=== PATIENT | female | born 1945 | race Caucasian/White ===

== ENCOUNTER → 2017-06-16 | Outpatient (CLI) | payer MEDICARE ==
[~2017-06-16] MED LIST: AMLO1CAP12 PO; APIX5TAB PO; CALC1TAB2 PO; DILT240T13 PO; FERR-82 PO; IRON PO; LISI10TA7 PO; METF500T6 PO; MONT10TA24 PO; MULTIPLE PO; PARO30TA60 PO; PRAV20TA4 PO; ROPI2TAB9 PO; SITA100T12 PO; SOTA80TA20 PO
== END | disposition home or self-care (01) ==
LOC: RAH 14:38
PROVIDERS: ATTEND Internal Medicine
DX: M79.604 Pain in right leg (principal); M79.662 Pain in left lower leg; M79.89 Other specified soft tissue disorders; R22.42 Localized swelling, mass and lump, left lower limb
CPT/HCPCS: 93971

== ENCOUNTER → 2017-07-13 | Outpatient (CLI) | payer MEDICARE ==
[~2017-07-13] MED LIST changes: -AMLO1CAP12 PO
== END | disposition home or self-care (01) ==
LOC: SHCH 13:57
PROVIDERS: ATTEND Internal Medicine Cardiovascular Disease
DX: I08.3 Combined rheumatic disorders of mitral, aortic and tricuspid valves (principal); I25.10 Atherosclerotic heart disease of native coronary artery without angina pectoris
CPT/HCPCS: 93306

== ENCOUNTER → 2017-10-13 | Outpatient (CLI) | payer MEDICARE ==
[~2017-10-13] MED LIST changes: +FURO40TA5 PO; +FURO40TA7 PO; -LISI10TA7 PO; +LISI40TA4 PO; +METF-444 PO; -METF500T6 PO; +METO50TA18 PO; +RANI-248 PO; +ROPI2TAB2 PO; +SOTA80TA PO; -SOTA80TA20 PO; +TRAZ-185 PO; +[UNRECOGNIZED DRUG - CODE] PO
== END | disposition home or self-care (01) ==
LOC: RAH 11:22
PROVIDERS: ATTEND Internal Medicine Cardiovascular Disease
DX: I61.9 Nontraumatic intracerebral hemorrhage, unspecified (principal); I11.0 Hypertensive heart disease with heart failure; I50.30 Unspecified diastolic (congestive) heart failure; E11.42 Type 2 diabetes mellitus with diabetic polyneuropathy; E78.5 Hyperlipidemia, unspecified; E03.9 Hypothyroidism, unspecified; M19.90 Unspecified osteoarthritis, unspecified site; I25.10 Atherosclerotic heart disease of native coronary artery without angina pectoris; I48.0 Paroxysmal atrial fibrillation; K21.9 Gastro-esophageal reflux disease without esophagitis; Z90.710 Acquired absence of both cervix and uterus
CPT/HCPCS: 70450

== ENCOUNTER 2017-10-19 07:40 | Day surgery (SDC) | payer MEDICARE ==
[2017-10-17 14:15] VITALS: BP 127/87
[2017-10-17 14:36] LABS: BASOPHILS % (AUTO) 1.3 % (0.0-5.0); EOSINOPHILS % (AUTO) 0.9 % (0.0-8.0); HEMATOCRIT 34.9 % (36-48); LYMPHOCYTES % (AUTO) 9.5 % (21.0-51.0); MEAN CORPUSCULAR HGB CONC 31.6 g/dL (32.0-36.0); MEAN CORPUSCULAR VOLUME 82.4 fL (79-99); MONOCYTES % (AUTO) 12.5 % (3.0-13.0); NEUTROPHILS % (AUTO) 75.8 % (40.0-77.0); NUCLEATED RED BLOOD CELLS 0.1 % (0.0-0.19); PLATELET COUNT (AUTO) 382 K/uL (130-400); RED BLOOD CELL COUNT(AUTO) 4.24 MIL/uL (4.00-5.50); RED CELL DISTRIBUTION WIDTH 17.2 % (11.0-15.5); WHITE BLOOD COUNT (AUTO) 7.3 K/uL (4.8-10.8)
[2017-10-17 14:49] LABS: CREATININE 1.3 mg/dL (0.5-1.5); POTASSIUM 3.4 mmol/L (3.5-5.1)
[2017-10-17 14:52] LABS: INR 1.36 (0.85-1.15); PARTIAL THROMBOPLASTIN TIME 30.5 SEC (26.3-35.5); PROTHROMBIN TIME 14.2 SEC (9.6-11.6)
[~2017-10-19] VITALS: Ht 149.9 cm; Wt 61.4 kg
[~2017-10-19 07:40] MED LIST changes: -FURO40TA5 PO; -FURO40TA7 PO; -METF-444 PO; -METO50TA18 PO; -RANI-248 PO; -ROPI2TAB2 PO; +SODIUM CHLORIDE 0.9% 1000ML 1,000 ML IV SCH; -SOTA80TA PO; -TRAZ-185 PO
[2017-10-19 07:48] VITALS: BP 116/80
[2017-10-19] MEDS ORDERED: DEXTROSE 50%-WATER 50 ML DISP.SYRIN IV ONE (08:07)
[2017-10-19] MEDS ORDERED: SOTA80TA PO (09:05)
[2017-10-19] MEDS ORDERED: LISI40TA4 PO (09:05)
[2017-10-19] MEDS ORDERED: ROPI2TAB2 PO (09:10)
[2017-10-19] MEDS ORDERED: TRAZ-185 PO (09:16)
[2017-10-19] MEDS ORDERED: FURO40TA5 PO (09:16)
[2017-10-19] MEDS ORDERED: RANI-248 PO (09:16)
[2017-10-19] MEDS ORDERED: METO50TA18 PO (09:16)
[2017-10-19] MEDS ORDERED: MIDAZOLAM HCL 1 MG/ML 2ML VIAL ONE (09:27)
[2017-10-19] MEDS ORDERED: FENTANYL CITRATE PF 50 MCG/1 ML 2ML VIAL ONE (09:28)
[2017-10-19] MEDS ORDERED: FURO40TA7 PO (11:56)
== END 2017-10-19 12:21 | disposition home or self-care (01) ==
LOC: DAH 07:40
PROVIDERS: ATTEND Internal Medicine Cardiovascular Disease
DX: I25.10 Atherosclerotic heart disease of native coronary artery without angina pectoris (principal); I10 Essential (primary) hypertension; E78.5 Hyperlipidemia, unspecified; I48.0 Paroxysmal atrial fibrillation; E11.9 Type 2 diabetes mellitus without complications; I34.1 Nonrheumatic mitral (valve) prolapse; Z98.49 Cataract extraction status, unspecified eye; Z95.1 Presence of aortocoronary bypass graft; Z79.899 Other long term (current) drug therapy; Z79.84 Long term (current) use of oral hypoglycemic drugs; Z96.651 Presence of right artificial knee joint; Z82.49 Family history of ischemic heart disease and other diseases of the circulatory system; Z83.3 Family history of diabetes mellitus; Z88.8 Allergy status to other drugs, medicaments and biological substances
CPT/HCPCS: 36415; 80048; 82948 ×2; 85025; 85610; 85730; 92960; 93005 ×2; A4606; J2250; J3010; J7070; 99155

== ENCOUNTER → 2018-03-16 | Outpatient (CLI) | payer MEDICARE ==
[~2018-03-16] MED LIST changes: -DILT240T13 PO; +FURO40TA7 PO; +RANI-248 PO; +ROPI2TAB2 PO; -ROPI2TAB9 PO; -SODIUM CHLORIDE 0.9% 1000ML 1,000 ML IV SCH; +SOTA80TA PO; +TRAZ-185 PO; -[UNRECOGNIZED DRUG - CODE] PO
== END | disposition home or self-care (01) ==
LOC: RAH 12:56
PROVIDERS: ATTEND Internal Medicine
DX: G23.8 Other specified degenerative diseases of basal ganglia (principal); G31.9 Degenerative disease of nervous system, unspecified
CPT/HCPCS: 70450

== ENCOUNTER 2018-05-07 05:24 | Observation (INO) | payer MEDICARE ==
[~2018-05-07] VITALS: Ht 149.9 cm; Wt 43.7 kg
[2018-05-07 06:03] LABS: APPEARANCE,URINE Clear (CLEAR); BILIRUBIN,URINE Negative (NEGATIVE); COLOR,URINE Yellow (YELLOW); GLUCOSE, URINE (UA) Negative (NEGATIVE); KETONES,URINE Negative (NEGATIVE); LEUKOCYTE ESTERASE ,URINE Negative (NEGATIVE); NITRATE,URINE Negative (NEGATIVE); OCCULT BLOOD,URINE Negative (NEGATIVE); PROTEIN,URINE Negative (NEGATIVE); UROBILINOGEN,URINE 0.2 mg/dL (0.2-1.0)
[2018-05-07 06:09] LABS: BASOPHILS % (AUTO) 1.2 % (0.0-5.0); HEMATOCRIT 33.4 % (36-48); LYMPHOCYTES % (AUTO) 10.4 % (21.0-51.0); MEAN CORPUSCULAR HEMOGLOBIN 25.5 pg (27.0-33.0); MEAN CORPUSCULAR HGB CONC 31.4 g/dL (32.0-36.0); MEAN CORPUSCULAR VOLUME 81.2 fL (79-99); MONOCYTES % (AUTO) 15.4 % (3.0-13.0); NUCLEATED RED BLOOD CELLS 0.2 % (0.0-0.19); PLATELET COUNT (AUTO) 278 K/uL (130-400); RED BLOOD CELL COUNT(AUTO) 4.12 MIL/uL (4.00-5.50); RED CELL DISTRIBUTION WIDTH 20.8 % (11.0-15.5); WHITE BLOOD COUNT (AUTO) 8.8 K/uL (4.8-10.8)
[2018-05-07 06:14] LABS: CREATININE 1.2 mg/dL (0.5-1.5); POTASSIUM 3.8 mmol/L (3.5-5.1)
[2018-05-07 06:18] LABS: INR 1.25 (0.85-1.15); PARTIAL THROMBOPLASTIN TIME 30.3 SEC (26.3-35.5); PROTHROMBIN TIME 13.1 SEC (9.6-11.6)
[2018-05-07 06:20] LABS: ALBUMIN 3.5 g/dL (3.5-5.0); BILIRUBIN,TOTAL 0.6 mg/dL (0.2-1.0); TOTAL PROTEIN, SERUM 7.3 g/dL (6.0-8.3)
[2018-05-07] MEDS ORDERED: FUROSEMIDE 10 MG/ML 4ML VIAL ONE (07:54)
[2018-05-07] MEDS ORDERED: ROPINIROLE HCL 1 MG TABLET PO PRN (10:15)
[2018-05-07] MEDS ORDERED: TRAZODONE HCL 50 MG TAB PO PRN (10:15)
[2018-05-07] MEDS ORDERED: RANITIDINE HCL 15 MG/1 ML PO PRN (10:15)
[2018-05-07 10:20] VITALS: BP 183/87
[2018-05-07] MEDS ORDERED: POTASSIUM CHLORIDE 20 MEQ ERTAB PO PRN (10:30)
[2018-05-07] MEDS ORDERED: LACTULOSE 20 GM/30 ML UDCUP PO PRN (10:30)
[2018-05-07] MEDS ORDERED: POTASSIUM CHLORIDE 10% ELIXIR 20 MEQ/15 ML UDCUP PO PRN (10:30)
[2018-05-07] MEDS ORDERED: POTASSIUM CHLORIDE 20MEQ/100ML 100 ML IV PRN (10:30)
[2018-05-07] MEDS ORDERED: GLUCAGON 1MG KIT 1 MG ML IM PRN (10:30)
[2018-05-07] MEDS ORDERED: MAG HYDROX/AL HYDROX/SIMETH ES 30 ML SUSP UDCUP PO PRN (10:30)
[2018-05-07] MEDS ORDERED: METOLAZONE 2.5 MG TABLET PO SCH (10:30)
[2018-05-07] MEDS ORDERED: ONDANSETRON HCL 4 MG/2 ML VIAL IV PRN (10:30)
[2018-05-07] MEDS ORDERED: LIDOCAINE HCL-MPF 1% 2ML VIAL IVP PRN (10:30)
[2018-05-07] MEDS ORDERED: DEXTROSE 50%-WATER 50 ML DISP.SYRIN IV PRN (10:30)
[2018-05-07] MEDS ORDERED: ACETAMINOPHEN 325 MG TAB PO PRN ×2 (10:30)
[2018-05-07] MEDS ORDERED: TRIAMCINOLONE ACETONIDE 0.1% CREAM 15GM TP SCH (11:00)
[2018-05-07] MEDS: CETIRIZINE HCL 5 MG TABLET PO SCH (11:25)
[2018-05-07] MEDS: POTASSIUM CHLORIDE 20 MEQ ERTAB PO SCH ×3 (11:26→21:11)
[2018-05-07] MEDS ORDERED: LISINOPRIL 40 MG TABLET PO SCH ×2 (11:27→21:00)
[2018-05-07] MEDS: TRIAMCINOLONE ACETONIDE 0.1% CREAM 15GM TP SCH ×2 (13:55→21:14)
[2018-05-07] MEDS: FUROSEMIDE 10 MG/ML 4ML VIAL IVP SCH ×2 (13:55→21:11)
[2018-05-07 16:00] VITALS: BP 170/90
[2018-05-07 20:00] VITALS: BP 161/89
[2018-05-07] MEDS ORDERED: SIMVASTATIN 20 MG TABLET PO SCH (21:00)
[2018-05-07] MEDS ORDERED: PAROXETINE HCL 20 MG TABLET PO SCH (21:00)
[2018-05-07] MEDS ORDERED: SOTALOL HCL 80 MG TABLET PO SCH (21:00)
[2018-05-07] MEDS: APIXABAN 5 MG TABLET PO SCH (21:11)
--- NOTE | 2018-05-07 21:15 | NUR ---
MEDS PT ALREADY IN BED, TRYING TO GET SOME SLEEP. DENIES ANY CONCERNS AT THIS TIME. DUE MEDS ADMINISTERED, TOLERATED WELL. KEPT RESTED. WILL MONITOR PT. CALL LIGHT WITHIN REACH.
[2018-05-07] MEDS ORDERED: FURO40TA7 PO (23:02)
[2018-05-07] MEDS ORDERED: FAMO20TA8 PO (23:03)
[2018-05-07] MEDS ORDERED: PRAV20TA4 PO (23:06)
[2018-05-07] MEDS ORDERED: POTA20TA82 PO (23:08)
[2018-05-07] MEDS ORDERED: METO25TA6 PO (23:11)
[2018-05-07] MEDS ORDERED: TRAZ-185 PO (23:12)
[2018-05-07] MEDS ORDERED: TRAZODONE HCL 100 MG TABLET PO PRN (23:15)
[2018-05-07] MEDS ORDERED: DRON400T2 PO (23:16)
[2018-05-07 23:29] VITALS: BP 173/70
[2018-05-07] MEDS ORDERED: CLONIDINE HCL 0.1 MG TABLET PO PRN (23:30)
[2018-05-07] MEDS ORDERED: METOCLOPRAMIDE 10 MG/2 ML VIAL IVP PRN (23:30)
--- NOTE | 2018-05-08 02:00 | NUR ---
WALK PT IS STILL AWAKE AND CLAIMS SHE IS UNABLE TO SLEEP SHE KEEPS USING THE BATHROOM. PT WALKING AROUND THE ROOM INDEPENDENTLY. WILL MONITOR.
[2018-05-08 03:24] VITALS: BP 142/77
[2018-05-08] MEDS: FUROSEMIDE 10 MG/ML 4ML VIAL IVP SCH (05:36)
[2018-05-08 05:46] LABS: HEMATOCRIT 34.9 % (36-48); MEAN CORPUSCULAR HEMOGLOBIN 25.6 pg (27.0-33.0); MEAN CORPUSCULAR HGB CONC 32.1 g/dL (32.0-36.0); MEAN CORPUSCULAR VOLUME 79.8 fL (79-99); PLATELET COUNT (AUTO) 308 K/uL (130-400); RED BLOOD CELL COUNT(AUTO) 4.37 MIL/uL (4.00-5.50); RED CELL DISTRIBUTION WIDTH 20.4 % (11.0-15.5); WHITE BLOOD COUNT (AUTO) 10.4 K/uL (4.8-10.8)
[2018-05-08 06:08] LABS: CREATININE 1.4 mg/dL (0.5-1.5); POTASSIUM 4.2 mmol/L (3.5-5.1)
[2018-05-08] MEDS ORDERED: PANTOPRAZOLE SODIUM 40 MG TABLET.DR PO SCH (07:30)
--- NOTE | 2018-05-08 07:30 | NUR ---
REPORT REPORT GIVEN TO AM SHIFT RN LAWRENCE. ENDORSING PT FOR MORE CARE AND MANAGEMENT.
[2018-05-08] MEDS ORDERED: HYDR-4153 PO (07:53)
[2018-05-08 08:00] VITALS: BP 157/73
[2018-05-08] MEDS ORDERED: FUROSEMIDE 40 MG TABLET PO SCH (09:00)
[2018-05-08] MEDS ORDERED: MONTELUKAST SODIUM 10 MG TAB PO SCH (09:00)
[2018-05-08] MEDS ORDERED: METOPROLOL TARTRATE 25 MG TAB PO SCH (09:00)
[2018-05-08] MEDS ORDERED: LISINOPRIL 40 MG TABLET PO SCH (09:00)
[2018-05-08] MEDS ORDERED: HYDRALAZINE HCL 10 MG TABLET PO SCH (09:00)
[2018-05-08] MEDS ORDERED: FERROUS SULFATE 325 MG TABLET.DR PO SCH (09:00)
[2018-05-08] MEDS: APIXABAN 5 MG TABLET PO SCH (09:18)
[2018-05-08] MEDS: CETIRIZINE HCL 5 MG TABLET PO SCH (09:19)
[2018-05-08] MEDS: POTASSIUM CHLORIDE 20 MEQ ERTAB PO SCH (09:20)
[2018-05-08] MEDS: TRIAMCINOLONE ACETONIDE 0.1% CREAM 15GM TP SCH (09:21)
[2018-05-08 12:00] VITALS: BP 141/63
[2018-05-08] MEDS ORDERED: LISI-613 PO (13:43)
--- NOTE | 2018-05-08 16:04 | NUR ---
RDSCREEN - LOW BMI Patient tolerating 75gm CC, Mechanical soft diet, 1500 mL fluid restriction with no report of GI distress and PO intake at 100%. Patient LBM 05/07/18. Patient monitored labs: BUN 23, GFR 39, Glu 90, Alb 3.5. RD to continue to monitor. Please notify RD as nutritional concerns arise. Thank you. Addendum: 05/08/18 at [address] Amended: Links added.
--- NOTE | 2018-05-08 16:40 | NUR ---
PATIENT WAS PROVIDED WITH DISCHARGE INSTRUCTIONS BY CHARGE NURSE AND SHE LEFT THE UNIT IN STABLE CONDITION. Addendum: 05/08/18 at 2017 by DEBRA JOHNSON RN RN Discharge teaching was done at 1600 in the room with pt and male visitor. Discussed dx, s/s to monitor for, when to seek emergency care / call 911. Pt has a follow up appt with Dr. Dee, encouraged to keep all appts. Pt given written rx for lisinopril and hydralazine. Discussed purpose, route, frequency, and duration of treatment, as well as side effects and adverse effects. PIV removed, tip intact. Dressed with sterile 2x2 and band aid after hemostasis. Pt wheeled to front lobby by [facility] staff for transport home via private car. Pt in stable condition at time of discharge.
[2018-05-08] MEDS ORDERED: ***HM***Pravastatin Sodium 10 MG PO SCH (21:00)
== END 2018-05-08 16:08 | disposition home or self-care (01) ==
LOC: EDH 05:24 → EDHIP 08:15 → 3AH 10:31
PROVIDERS: ADMIT Internal Medicine; ATTEND Internal Medicine
DX: I13.0 Hypertensive heart and chronic kidney disease with heart failure and stage 1 through stage 4 chronic kidney disease, or unspecified chronic kidney disease (principal); I50.33 Acute on chronic diastolic (congestive) heart failure; N18.2 Chronic kidney disease, stage 2 (mild); D68.69 Other thrombophilia; E03.9 Hypothyroidism, unspecified; E11.21 Type 2 diabetes mellitus with diabetic nephropathy; E11.22 Type 2 diabetes mellitus with diabetic chronic kidney disease; E11.42 Type 2 diabetes mellitus with diabetic polyneuropathy; E78.1 Pure hyperglyceridemia; E78.5 Hyperlipidemia, unspecified; I25.10 Atherosclerotic heart disease of native coronary artery without angina pectoris; I34.1 Nonrheumatic mitral (valve) prolapse; G25.81 Restless legs syndrome; I70.0 Atherosclerosis of aorta; J44.9 Chronic obstructive pulmonary disease, unspecified; K21.9 Gastro-esophageal reflux disease without esophagitis; K22.10 Ulcer of esophagus without bleeding; K76.0 Fatty (change of) liver, not elsewhere classified; K90.9 Intestinal malabsorption, unspecified; L12.9 Pemphigoid, unspecified; M19.90 Unspecified osteoarthritis, unspecified site; I48.91 Unspecified atrial fibrillation; M85.80 Other specified disorders of bone density and structure, unspecified site; F03.90 Unspecified dementia, unspecified severity, without behavioral disturbance, psychotic disturbance, mood disturbance, and anxiety; F10.20 Alcohol dependence, uncomplicated; F13.20 Sedative, hypnotic or anxiolytic dependence, uncomplicated; F32.5 Major depressive disorder, single episode, in full remission; F41.9 Anxiety disorder, unspecified; F51.04 Psychophysiologic insomnia; Z79.01 Long term (current) use of anticoagulants; Z79.899 Other long term (current) drug therapy; Z87.19 Personal history of other diseases of the digestive system; Z87.891 Personal history of nicotine dependence; Z95.1 Presence of aortocoronary bypass graft; Z96.651 Presence of right artificial knee joint; Z98.42 Cataract extraction status, left eye; Z98.84 Bariatric surgery status; Z82.49 Family history of ischemic heart disease and other diseases of the circulatory system; Z83.3 Family history of diabetes mellitus
CPT/HCPCS: 36415 ×2; 71046; 80048; 80053; 81003; 82550; 82948 ×5; 83605; 83880; 84484; 85025; 85027; 85610; 85730; 93005; 96374; 96376 ×2; 99284; G0378 ×32; J1940 ×4; J2765

== ENCOUNTER 2018-07-17 02:25 | Inpatient (IN) | payer MEDICARE ==
[~2018-07-17] VITALS: Ht 152.4 cm; Wt 53.6 kg
[~2018-07-17 02:25] MED LIST changes: +DRON400T2 PO; +FAMO20TA8 PO; +HYDR-4153 PO; +LISI-613 PO; -LISI40TA4 PO; +METO25TA6 PO; +POTA20TA82 PO; -RANI-248 PO; -ROPI2TAB2 PO; -SITA100T12 PO; -SOTA80TA PO
[2018-07-17] MEDS ORDERED: SODIUM CHLORIDE 0.9% 500ML 500 ML IV ONE ×3 (02:54→06:35)
[2018-07-17] MEDS ORDERED: OCTYL 2-CYANOACRYLATE 1 EACH TP ONE (03:16)
[2018-07-17 03:22] LABS: BASOPHILS % (AUTO) 1.1 % (0.0-5.0); EOSINOPHILS % (AUTO) 1.5 % (0.0-8.0); LYMPHOCYTES % (AUTO) 10.7 % (21.0-51.0); MEAN CORPUSCULAR HEMOGLOBIN 26.1 pg (27.0-33.0); MEAN CORPUSCULAR HGB CONC 31.7 g/dL (32.0-36.0); MEAN CORPUSCULAR VOLUME 82.3 fL (79-99); MONOCYTES % (AUTO) 14.6 % (3.0-13.0); NEUTROPHILS % (AUTO) 72.1 % (40.0-77.0); NUCLEATED RED BLOOD CELLS 0.6 % (0.0-0.19); PLATELET COUNT (AUTO) 370 K/uL (130-400); RED BLOOD CELL COUNT(AUTO) 4.37 MIL/uL (4.00-5.50); RED CELL DISTRIBUTION WIDTH 17.2 % (11.0-15.5); WHITE BLOOD COUNT (AUTO) 10.2 K/uL (4.8-10.8)
[2018-07-17 03:36] LABS: CREATININE 2.4 mg/dL (0.5-1.5); POTASSIUM 4.2 mmol/L (3.5-5.1)
[2018-07-17 03:40] LABS: ALBUMIN 3.2 g/dL (3.5-5.0); BILIRUBIN,TOTAL 0.7 mg/dL (0.2-1.0); TOTAL PROTEIN, SERUM 6.5 g/dL (6.0-8.3)
[2018-07-17 03:44] LABS: INR 1.44 (0.85-1.15); PARTIAL THROMBOPLASTIN TIME 29.2 SEC (26.3-35.5)
[2018-07-17] MEDS ORDERED: SODIUM CHLORIDE 0.9% 1000ML 1,000 ML IV ONE ×2 (05:02→14:48)
[2018-07-17] MEDS ORDERED: ACETAMINOPHEN 325 MG TAB PO PRN ×2 (05:30→08:00)
[2018-07-17] MEDS: SODIUM CHLORIDE 0.9% 1000ML 1,000 ML IV SCH ×3 (05:30→23:59)
[2018-07-17] MEDS ORDERED: ONDANSETRON HCL 4 MG/2 ML VIAL IVP PRN (05:30)
[2018-07-17 05:49] LABS: BILIRUBIN,URINE Negative (NEGATIVE); COLOR,URINE Yellow (YELLOW); GLUCOSE, URINE (UA) Negative (NEGATIVE); KETONES,URINE Negative (NEGATIVE); LEUKOCYTE ESTERASE ,URINE Negative (NEGATIVE); NITRATE,URINE Negative (NEGATIVE); OCCULT BLOOD,URINE Negative (NEGATIVE); PROTEIN,URINE POS 1+ mg/dL (NEGATIVE); UROBILINOGEN,URINE 0.2 mg/dL (0.2-1.0)
[2018-07-17 05:56] LABS: AMORPHOUS SEDIMENT,UR Few /LPF (None Seen); APPEARANCE,URINE SLIGHTLY CLOUDY (CLEAR); BACTERIA,URINE None Seen /HPF (None Seen); MUCUS,URINE Rare LPF (None Seen); RBC,URINE None Seen /HPF (0-1); SQUAMOUS EPITHELIAL CELL,UR Rare /HPF (0-2); WBC,URINE None Seen /HPF (0-1)
[2018-07-17] MEDS ORDERED: CEFTRIAXONE SODIUM 1 GM ONE (06:36)
[2018-07-17 06:58] LABS: AMPHET/METH SCREEN,URINE NEGATIVE (NEGATIVE); BARBITURATE SCREEN, URINE NEGATIVE (NEGATIVE); BENZODIAZEPINES SCREEN,URINE NEGATIVE (NEGATIVE); CANNABINOID SCREEN,URINE NEGATIVE (NEGATIVE); COCAINE SCREEN,URINE NEGATIVE (NEGATIVE); OPIATE SCREEN,URINE NEGATIVE (NEGATIVE); PHENCYCLIDINE SCREEN,URINE NEGATIVE (NEGATIVE)
[2018-07-17] MEDS ORDERED: ROPINIROLE HCL 1 MG TABLET PO PRN (07:00)
[2018-07-17] MEDS ORDERED: LIDOCAINE HCL-MPF 1% 2ML VIAL IVP PRN (08:00)
[2018-07-17] MEDS ORDERED: GLUCAGON 1MG KIT 1 MG ML IM PRN (08:00)
[2018-07-17] MEDS ORDERED: MAG HYDROX/AL HYDROX/SIMETH ES 30 ML SUSP UDCUP PO PRN (08:00)
[2018-07-17] MEDS ORDERED: DIPHENHYDRAMINE HCL 25 MG CAPSULE PO PRN (08:00)
[2018-07-17] MEDS ORDERED: TRAZODONE HCL 50 MG TAB PO PRN (08:00)
[2018-07-17] MEDS ORDERED: POTASSIUM CHLORIDE 20 MEQ ERTAB PO PRN (08:00)
[2018-07-17] MEDS ORDERED: DiphenhydrAMINE HCL 50 MG/ML VIAL IV PRN (08:00)
[2018-07-17] MEDS ORDERED: FAMO20TA8 PO (08:32)
[2018-07-17] MEDS ORDERED: METO50TA18 PO (08:32)
[2018-07-17] MEDS ORDERED: PARO-37 PO (08:35)
[2018-07-17] MEDS ORDERED: TRAZ-185 PO (08:35)
[2018-07-17] MEDS ORDERED: FEXO180T94 PO (08:43)
[2018-07-17] MEDS ORDERED: MULTIVITAMINS W-IRON 50 ML DROPS PO SCH (09:00)
[2018-07-17] MEDS ORDERED: APIXABAN 5 MG TABLET PO SCH (09:00)
[2018-07-17] MEDS ORDERED: FAMOTIDINE 20MG TAB 20 MG TAB PO SCH (09:00)
[2018-07-17] MEDS ORDERED: FERROUS SULFATE 325 MG TABLET.DR PO SCH (09:00)
[2018-07-17] MEDS: DRONEDARONE HYDROCHLORIDE 400 MG TABLET PO SCH (09:00)
[2018-07-17] MEDS ORDERED: MONTELUKAST SODIUM 10 MG TAB ONE (09:01)
[2018-07-17] MEDS ORDERED: FAMOTIDINE 20MG TAB 20 MG TAB ONE (09:01)
[2018-07-17] MEDS ORDERED: ONDANSETRON HCL 4 MG/2 ML VIAL ONE (10:45)
[2018-07-17] MEDS: INSULIN HUMULIN R 100 UNIT/ML 3ML SQ SCH ×2 (11:30→16:30)
[2018-07-17] MEDS ORDERED: ATROPINE SULFATE 0.1 MG/ML 10 ML SYG IVP ONE (12:48)
[2018-07-17] MEDS ORDERED: DEXTROSE 50%-WATER 50 ML DISP.SYRIN IV ONE (12:48)
[2018-07-17] MEDS ORDERED: DOPAMINE HCL 400 MG/D5%-WATER 250 ML IV ONE (12:48)
[2018-07-17] MEDS ORDERED: EPINEPHRINE 0.1 MG/ML 10 ML SYG IVP ONE (12:48)
[2018-07-17] MEDS ORDERED: SUCCINYLCHOLINE CHLORIDE 20 MG/ML 10 ML VIAL IVP ONE (13:11)
--- NOTE | 2018-07-17 16:00 | NUR ---
ER ADMIT PATIENT RECEIVED FROM ER, REPORT RECEIVED FROM CHARLES VÁSQUEZ. PATIENT AWAKE WITH VERBAL STIMULI AND LETHARGIC, LOW BLOOD PRESSURE AND A TEMPERATURE OF 95.3. PER ER NURSE PATIENT HAS NOT VOIDED ALL DAY. UNABLE TO GET HISTORY, PATIENT IS PLEASANTLY CONFUSED. EXTRA TIME NEEDED TO VOICE NEEDS. DR.LOZANO STARKEY. RETURN CALL PENDING. HEAD TO TOE ASSESSMENT DONE. CALL LIGHT WITHIN REACH. BED ALARM ON. FALL PRECAUTIONS IN PLACE DUE TO POOR SAFETY AWARENESS. WILL CONTINUE TO BE OBSERVED. Addendum: 07/17/18 at 2030 by DEL DAO RN RN Amended: Links added.
--- NOTE | 2018-07-17 16:06 | NUR ---
INITIAL ATTEMPTED- CALL TO ATTEMPTED TO CONTACT JOAQUIN OSBORNE- WENT TO VOICE MAIL Addendum: 07/17/18 at 1607 by KAREN HUSTON RN CM Amended: Links added.
[2018-07-17] MEDS ORDERED: SODIUM CHLORIDE 0.9% 250 ML IV SCH (16:15)
--- NOTE | 2018-07-17 17:00 | NUR ---
CALLED TO UPDATE PATIENT STATUS, NEW ORDERS RECEIVED AND CARRIED OUT. 16 FR AGUIRRE CATHETER INSERTED USING STERILE TECHNIQUE PER ORDERS AND 500CC OF NS IV BOLUS GIVEN. PATIENT TOLERATED WELL. Addendum: 07/17/18 at 2034 by DEL DAO RN RN Amended: Links added.
[2018-07-17 17:21] LABS: HEMATOCRIT 40.2 % (36-48); MEAN CORPUSCULAR HEMOGLOBIN 25.5 pg (27.0-33.0); MEAN CORPUSCULAR HGB CONC 29.8 g/dL (32.0-36.0); MEAN CORPUSCULAR VOLUME 85.3 fL (79-99); NUCLEATED RED BLOOD CELLS 1.3 % (0.0-0.19); PLATELET COUNT (AUTO) 423 K/uL (130-400); RED BLOOD CELL COUNT(AUTO) 4.71 MIL/uL (4.00-5.50); RED CELL DISTRIBUTION WIDTH 17.9 % (11.0-15.5); WHITE BLOOD COUNT (AUTO) 15.7 K/uL (4.8-10.8)
[2018-07-17 17:22] LABS: CREATININE 2.7 mg/dL (0.5-1.5); POTASSIUM 5.1 mmol/L (3.5-5.1)
[2018-07-17 17:28] VITALS: BP 93/69
--- NOTE | 2018-07-17 19:35 | NUR ---
PATIENT LETHARGIC, BUT AROUSABLE TO VERBAL AND TACTILE STIMULI. VERBALLY RESPONSIVE, ORIENTED TO NAME AND PLACE, NOTED TO BE VERY RESTLESS, TOSSING AND TURNING IN BED AND REMOVING COVERS, WILL CONTINUE TO MONITOR.
--- NOTE | 2018-07-17 19:40 | NUR ---
CALLED SPOUSE, MESSAGE GOES STRAIGHT TO VOICE MAIL. PENDING CALL BACK.
[2018-07-17 20:00] VITALS: BP 108/69
--- NOTE | 2018-07-17 20:10 | NUR ---
HYPOGLYCEMIA-BLOOD SUGAR 35MG/DL, REPEAT 21MG/DL, D50 AMPULE GIVEN, BUT QUICKLY BECAME UNRESPONSIVE, SKIN VERY PALE, MOTTLED LIPS, TEETH CLENCHED, DECREASED RESPIRATIONS TURNED INTO AGONAL BREATHING AND BODY BECAME STIFF, RAPID RESPONSE ACTIVATED. B/P 81/61, PER TELE, PRIOR TO EVENT, PATIENT IN A FIB 90'S, NOW IN ACCELERATED JUNCTIONAL RHYTHM WITH PVC'S, UNABLE TO OBTAIN O2 SAT. TEAM ARRIVED, PLACED ON NON-REBREATHER MASK. BLOOD SUGAR RE-CHECK 255MG/DL. PATIENT VERY RESTLESS IN BED, TRYING TO SPEAK AND OPEN EYES. SKIN STILL VERY PALE AND DUSKY. RT ATTEMPTING, BUT HAVING DIFFICULTY OBTAINING ABG'S. DR. LEE WAS CALLED AND LEFT MESSAGE TO CALL BACK, PENDING CALL BACK.
[2018-07-17 20:42] LABS: ABG BASE EXCESS -22.9 mmol/L (-2.0-3.0); ABG HCO3 5.7 mmol/L (21.0-28.0); ABG OXYGEN SATURATION 99.4 % (95.0-99.0); ABG PCO2 21 mmHg (32-45)
--- NOTE | 2018-07-17 20:55 | NUR ---
RAPID RESPONSE-DR LEE WAS CALLED AGAIN THROUGH ANSWERING SERVICE. SHE IMMEDIATELY CALLED BACK AND WAS UPDATED ON RAPID RESPONSE ACTIVATION, CURRENT STATUS. INFORMED OF ABNORMAL ABG'S, LACTIC ACID INCREASE FROM 1.9 TO 8.8., DECREASED B/P 80/46 DESPITE RUNNING IV FLUID AND LOW URINE OUTPUT AT 100CC VIA F/C. BLOOD SUGAR CURRENTLY AT 291MG/DL, IMPROVED O2 SAT AFTER PLACING ON NON-REBREATHER MASK, BUT PERSISTENT PALENESS, LETHARGY AND RESTLESSNESS. NEW ORDERS GIVEN INCLUDING TRANSFER TO ICU.
[2018-07-17] MEDS ORDERED: PAROXETINE HCL 20 MG TABLET PO SCH (21:00)
[2018-07-17] MEDS ORDERED: MONTELUKAST SODIUM 10 MG TAB PO SCH (21:00)
[2018-07-17] MEDS ORDERED: ZOSYN 3.375GM+NS 50ML 50 ML IV ONE (21:10)
[2018-07-17] MEDS ORDERED: NOREPINEPHRINE 4MG/NS 250ML IV SCH (21:30)
[2018-07-17] MEDS ORDERED: PHARMACY COMMUNICATION MISC SCH (21:30)
[2018-07-17] MEDS: ZOSYN 3.375GM+NS 50ML 50 ML IV SCH (21:30)
--- NOTE | 2018-07-17 21:55 | NUR ---
TRANSFER-CONTINUES ON NON-REBREATHER MASK, MORE AWAKE, ORIENTED TO NAME AND PLACE, BUT STILL VERY RESTLESS, REMOVING O2 MASK AND PULLING ON COVERS. CURRENTLY ON A FIB 70'S-80'S PER TELE. REPORT CALLED IN MORE SOTO, PATIENT THEN TRANSFERRED TO ROOM 210 FOR CRITICAL LEVEL OF CARE.
--- NOTE | 2018-07-17 22:10 | NUR ---
RECEIVED TRANSFER FROM [facility] BY BED. MOVED TO ICU BED 210 AND PLACED ON CARDICA MONITOR,PULSE OXIMETER AND NIBP CUFF. RESTLESS AND MOVES CONSTANTLY IN BED. HAS O2 ON BY NRM AND 100% FIO2. INSTRUCTED NOT TO MOVE SO MUCH SO THAT BP AND PULSE OXIMETER COULD BE CHECKED FREQUENTLY. ORIENTED ONLY TO SELF. CALL LIGHT EXPLAINED AND GIVEN TO HER.
[2018-07-17 22:30] VITALS: BP 146/53
[2018-07-17 22:45] VITALS: BP 143/70
--- NOTE | 2018-07-17 22:50 | NUR ---
MD CALL ABG FROM FLOOR WITH LOW PH AND HCO3. DUE TO HER RESTLESSNESS AND CONSTANT MOVEMENT UNABLE TO GET BP ON A REGULAR BASIS AND PULSE OXIMETER NOT ABLE TO READ. DR LEE BEEPED TO GIVEN THIS INFORMATION.
--- NOTE | 2018-07-17 23:05 | NUR ---
MD CALL DR LEE CALLS BACK. GIVEN ABG RESULTS FROM FLOOR. ALSO INFORMED OF HER LAB RESULTS AND RESTLESSNESS THAT PREVENTS BEING ABLE TO GET BP AT TIMES. ALSO INFORMED OF NOT BEING ABLE TO GET PULSE OXIMETER READING MOST OF THE TIME. SAT ON PREVIOUS ABG 98%. ORDERS RECEIVED AND CARRIED OUT.
[2018-07-17] MEDS ORDERED: SODIUM CHLORIDE 0.9% 1000ML 1,000 ML IV SCH (23:15)
[2018-07-17 23:30] VITALS: BP 121/85
--- NOTE | 2018-07-17 23:35 | NUR ---
ABG RESULTS BACK. DIFFICULT TO DRAW DUE TO HER MOVEMENT AND RESTLESSNESS. SAT ON THESE 98.5% STILL UNABLE TO GET REGULAR BP AND PULSE OXIMETER READINGS DUE TO MOVEMENT. O2 CHANGED TO 4LNC. NS BOLUS GIVEN. IVF CHANGED TO NEW ORDER. RESTS FOR SHORT PERIODS OF TIME.
[2018-07-17 23:37] LABS: ABG BASE EXCESS -22.8 mmol/L (-2.0-3.0); ABG HCO3 5.8 mmol/L (21.0-28.0); ABG OXYGEN SATURATION 98.5 % (95.0-99.0); ABG PCO2 21 mmHg (32-45)
[2018-07-17] MEDS ORDERED: SODIUM BICARB 50MEQ 50ML VIAL ONE (23:38)
[2018-07-18] VITALS (40 sets, daily range): BP systolic 85–152; BP diastolic 42–97
--- NOTE | 2018-07-18 | NUR ---
STATUS LESS RESTLESS. NEEDS REMINDERS NOT TO TRY TO GET OOB. DENIES PAIN.
[2018-07-18] MEDS ORDERED: SODIUM CHLORIDE 0.9% 1000ML 1,000 ML IV SCH (00:15)
--- NOTE | 2018-07-18 03:25 | NUR ---
RAPID RESPONSE BECAME UNRESPONSIVE WITH BRADYCARDIA WHILE POSITIONING HER. RAPID RESPONSE CALLED. HER BREATHING BECAME AGONAL AND CODE BLUE CALLED. SEE CODE SHEET.
--- NOTE | 2018-07-18 03:40 | NUR ---
SPOUSE CALL PLACED TO SPOUSE. NO ANSWER
--- NOTE | 2018-07-18 03:41 | NUR ---
SPOUSE CALL PLACED TO SPOUSE--LEFT VOICE MESSAGE ON PHONE
--- NOTE | 2018-07-18 03:45 | NUR ---
SPOUSE CALL PLACED TO SPOUSE WITH NO ANSWER
--- NOTE | 2018-07-18 03:50 | NUR ---
SPOUSE CALL PLACED TO SPOUSE'S PHONE WITH NO ANSWER
--- NOTE | 2018-07-18 03:50 | NUR ---
STATUS BP NOW ELEVATED ON DOPAMINE DRIP. PULSE 77. CALL PLACED TO DR LEE TO INFORM OF CODE BLUE RESULT.
[2018-07-18 03:54] LABS: ABG BASE EXCESS -30.6 mmol/L (-2.0-3.0); ABG HCO3 5.1 mmol/L (21.0-28.0); ABG OXYGEN SATURATION 98.1 % (95.0-99.0); ABG PCO2 41 mmHg (32-45)
--- NOTE | 2018-07-18 04:00 | NUR ---
MD CALL DR LEE CALLS BACK AND INFORMED OF CODE RESULTS AND ORDERS RECEIVED AND CARRIED OUT. CALL PLACED TO DR VENCES FOR CONSULT.
[2018-07-18] MEDS ORDERED: DEXTROSE 5 %-0.45 % NACL 1,000 ML IV ONE (04:06)
[2018-07-18] MEDS ORDERED: SODIUM BICARB 50MEQ 50ML VIAL ONE ×3 (04:07→05:09)
--- NOTE | 2018-07-18 04:11 | NUR ---
SPOUSE CALL PLACED TO SPOUSE'S CONTACT NUMBER. NO ANSWER.
--- NOTE | 2018-07-18 04:27 | NUR ---
SPOUSE CALL PLACED TO SPOUSE WITH NO ANSWER. VOICE MESSAGE LEFT
[2018-07-18 04:35] LABS: POTASSIUM 6.1 mmol/L (3.5-5.1)
--- NOTE | 2018-07-18 04:45 | NUR ---
MD ELENA SHAVER NP FOR DR VENCES CALLS INFORMED OF CONSULT ON SP CODE PT. GIVEN LATEST ABG AND VENT SETTINGS. ORDERS RECEIVED AND CARRIED OUT.
[2018-07-18] MEDS ORDERED: DEXTROSE 5%-WATER 1,000 ML IV ONE ×2 (04:53→05:10)
[2018-07-18] MEDS ORDERED: MIDAZOLAM HCL 1 MG/ML 2ML VIAL ONE (05:08)
--- NOTE | 2018-07-18 05:15 | NUR ---
WAKING UP ATTEMPTING TO PULL OUT ETT AND IV. MEDICATED WITH VERSED PER ORDER FOR VENT CONTROL.
[2018-07-18 05:32] LABS: BASOPHILS % (AUTO) 0.5 % (0.0-5.0); EOSINOPHILS % (AUTO) 0.1 % (0.0-8.0); HEMATOCRIT 35.6 % (36-48); LYMPHOCYTES % (AUTO) 5.9 % (21.0-51.0); MEAN CORPUSCULAR HEMOGLOBIN 25.2 pg (27.0-33.0); MEAN CORPUSCULAR HGB CONC 29.1 g/dL (32.0-36.0); MEAN CORPUSCULAR VOLUME 86.7 fL (79-99); NEUTROPHILS % (AUTO) 87.5 % (40.0-77.0); NUCLEATED RED BLOOD CELLS 1.6 % (0.0-0.19); PLATELET COUNT (AUTO) 359 K/uL (130-400); RED BLOOD CELL COUNT(AUTO) 4.11 MIL/uL (4.00-5.50); RED CELL DISTRIBUTION WIDTH 18.1 % (11.0-15.5); WHITE BLOOD COUNT (AUTO) 26.1 K/uL (4.8-10.8)
[2018-07-18] MEDS ORDERED: SODIUM BICARB 50MEQ 50ML VIAL IV SCH (05:59)
[2018-07-18] MEDS ORDERED: DEXTROSE 5%-WATER 1,000 ML IV SCH (06:00)
[2018-07-18] MEDS ORDERED: DEXTROSE 5 %-0.45 % NACL 1,000 ML IV SCH (06:00)
--- NOTE | 2018-07-18 06:00 | NUR ---
STATUS REMAINS ON VENT WITH ORDERED SETTINGS. VSS. DUE FOR ABG AT 0700.
[2018-07-18 06:01] LABS: ALBUMIN 2.3 g/dL (3.5-5.0); BILIRUBIN,DIRECT 0.7 mg/dL (0.0-0.3); BILIRUBIN,TOTAL 1.2 mg/dL (0.2-1.0); CREATININE 2.9 mg/dL (0.5-1.5); POTASSIUM 4.8 mmol/L (3.5-5.1); THYROID STIMULATING HORMONE 5.99 uIU/mL (0.36-3.74)
[2018-07-18 06:04] LABS: INR 3.99 (0.85-1.15); PROTHROMBIN TIME 40.8 SEC (9.6-11.6)
[2018-07-18] MEDS ORDERED: CEFTRIAXONE SODIUM 1 GM IVP SCH (06:30)
[2018-07-18 07:36] LABS: ABG BASE EXCESS -18.6 mmol/L (-2.0-3.0); ABG HCO3 8.8 mmol/L (21.0-28.0); ABG OXYGEN SATURATION 78.5 % (95.0-99.0); ABG PCO2 27 mmHg (32-45)
[2018-07-18] MEDS ORDERED: PROPOFOL 1000 MG/100 ML 100 ML IV ONE (07:57)
[2018-07-18 07:59] LABS: TROPONIN I 0.09 ng/mL (0.00-0.06)
[2018-07-18] MEDS ORDERED: PROPOFOL 1000 MG/100 ML IV PRN (08:00)
--- NOTE | 2018-07-18 08:30 | NUR ---
SPOUSE CALLED- OUT [place] COUNTRY, SPOKE TO SPOUSE- RETURNED CALL. [place]. JUST FINDING OUT HIS IS IN HOSPITAL, HAS BEEN TRYING TO REACH HER CELL PHONE FOR SEVERAL DAYS. ADVISED SPOUE THAT PT WAS ADMITTED WITH DEHN AND RENAL FAILURE, AND THAT HER TEMP WAS VERY LOW AND WAS VERY SLEEPY ON ADMISSION; ASKED IF THERE WAS ANY FAMILY IN HOSPITAL FOR BEHAVIORAL MEDICINE; SPOUSE STATES 'NONE AT ALL', THEN SPOUSE GAVE THIS CM THE NAME OF GIOVANNY BUSCH - FORM HIS OFFIC/WORK- TO CALL- WRITTEN ON FACE SHEET ADVISED HIM THAT THIS CM'S INFO MIGHT NOT BE UP TO DATE, SO WENT TO UNIT WHERE PT WAS. ADVISED SPOUSE PT WAS IN ICU- AT THIS TIME AND GAVE HIM PRIMARY NURSE'S NAME, DEMARCUS, AND CALL BACK NUMBER [phone] TO CALL DEMARCUS TO EXPLAIN SPOUSES CONDITION. CONTACT NUMBER OF GIOVANNY BUSCH GIVEN TO PRIMARY RN AND UPDATED UPDATED PAULINA MEDRANO Addendum: 07/18/18 at 1229 by KAREN HUSTON RN CM Amended: Links added.
[2018-07-18] MEDS: PROPOFOL 1000 MG/100 ML 100 ML IV PRN ×2 (08:46→13:28)
[2018-07-18] MEDS: ZOSYN 3.375GM+NS 50ML 50 ML IV SCH ×2 (08:49→21:04)
[2018-07-18] MEDS: FAMOTIDINE/PF 20 MG/2 ML VIAL IV SCH (08:49)
[2018-07-18] MEDS: LEVOFLOXACIN 500 MG/D5W 100 ML 100 ML IV SCH (08:49)
[2018-07-18] MEDS: ENOXAPARIN SODIUM 30 MG/0.3 ML SQ SCH (09:00)
[2018-07-18] MEDS: DRONEDARONE HYDROCHLORIDE 400 MG TABLET PO SCH ×3 (09:00→21:04)
[2018-07-18 11:11] LABS: ABG BASE EXCESS -11.1 mmol/L (-2.0-3.0); ABG OXYGEN SATURATION 97.9 % (95.0-99.0); ABG PCO2 19 mmHg (32-45)
[2018-07-18 12:53] LABS: APPEARANCE,URINE CLOUDY (CLEAR); BILIRUBIN,URINE NEGATIVE (NEGATIVE); COLOR,URINE YELLOW (YELLOW); GLUCOSE, URINE (UA) NEGATIVE (NEGATIVE); KETONES,URINE NEGATIVE (NEGATIVE); LEUKOCYTE ESTERASE ,URINE LARGE (NEGATIVE); NITRATE,URINE NEGATIVE (NEGATIVE); OCCULT BLOOD,URINE LARGE (NEGATIVE); PROTEIN,URINE >=300 mg/dL (NEGATIVE); UROBILINOGEN,URINE 0.2 mg/dL (0.2-1.0)
[2018-07-18 13:01] LABS: BACTERIA,URINE Many /HPF (None Seen); RBC,URINE 51-100 /HPF (0-1); WBC,URINE >100 /HPF (0-1)
[2018-07-18] MEDS: SODIUM BICARB 8.4% 50ML SYRING 150 MEQ in DEXTROSE 5%-WATER 1,000 ML IV SCH ×2 (13:29→21:57)
--- NOTE | 2018-07-18 13:37 | NUR ---
Pt sedated and no family available. Unable to get complete history. Medical history obtained from previous medical records. Addendum: 07/18/18 at 1341 by NAMITA BOLES RT Amended: Links added.
[2018-07-18 14:26] LABS: ABG BASE EXCESS -9.7 mmol/L (-2.0-3.0); ABG HCO3 12.1 mmol/L (21.0-28.0); ABG OXYGEN SATURATION 93.3 % (95.0-99.0); ABG PCO2 19 mmHg (32-45)
--- NOTE | 2018-07-18 15:23 | NUR ---
RD Notification Pt sedated and intubated at this time;OGT in place;No tube feeding plans at this time with possible extubation as per RN. When medically feasible, rec to advance diet as tolerated to 60gm CCD, Heart Healthy Diet. Pt LBM 07/17/18. Pt monitored labs: Glu 215, Na 147, CO2 12, BUN 54, Cr 2.9, GFR 17, Ca 7.2, AST 299, ALT 717, TCK 442, Alb 2.3. RD to continue to monitor. Please notify RD as additional nutritional concerns arise. Thank you. Addendum: 07/18/18 at [address] Amended: Links added.
[2018-07-18] MEDS: IPRATROPIUM/ALBUTEROL SULFATE 3 ML SOLUTION IH SCH ×2 (18:39→23:30)
--- NOTE | 2018-07-18 20:00 | NUR ---
ASSESSMENT REMAINS ON VENT WITH ORDERED SETTINGS AND SEDATION. FAMILY MEMBER AT BEDSIDE AND QUESTIONS ANSWERED. ENCOURAGED TO CALL FOR WANTS AND NEEDS. ASSESSMENT COMPLETED SEE FLOW SHEET. Addendum: 07/18/18 at 2050 by MORE KELLOGG RN RN Amended: Links added.
[2018-07-19] VITALS (36 sets, daily range): BP systolic 79–146; BP diastolic 41–110
[2018-07-19] MEDS: PROPOFOL 1000 MG/100 ML 100 ML IV PRN (00:40)
--- NOTE | 2018-07-19 07:25 | NUR ---
STARTED SEDATION VACATION.
[2018-07-19] MEDS: IPRATROPIUM/ALBUTEROL SULFATE 3 ML SOLUTION IH SCH ×3 (07:41→18:28)
[2018-07-19] MEDS: SODIUM BICARB 8.4% 50ML SYRING 150 MEQ in DEXTROSE 5%-WATER 1,000 ML IV SCH (07:55)
[2018-07-19] MEDS: FAMOTIDINE/PF 20 MG/2 ML VIAL IV SCH (08:02)
[2018-07-19] MEDS: ENOXAPARIN SODIUM 30 MG/0.3 ML SQ SCH (08:03)
[2018-07-19] MEDS: ZOSYN 3.375GM+NS 50ML 50 ML IV SCH ×2 (08:03→20:27)
--- NOTE | 2018-07-19 08:25 | NUR ---
STARTED CPAP TRIALS 11/11.
[2018-07-19 08:33] LABS: BASOPHILS % (AUTO) 0.6 % (0.0-5.0); EOSINOPHILS % (AUTO) 0.5 % (0.0-8.0); HEMATOCRIT 33.7 % (36-48); LYMPHOCYTES % (AUTO) 2.3 % (21.0-51.0); MEAN CORPUSCULAR HEMOGLOBIN 24.7 pg (27.0-33.0); MEAN CORPUSCULAR HGB CONC 31.1 g/dL (32.0-36.0); MEAN CORPUSCULAR VOLUME 79.4 fL (79-99); MONOCYTES % (AUTO) 3.9 % (3.0-13.0); NEUTROPHILS % (AUTO) 92.7 % (40.0-77.0); NUCLEATED RED BLOOD CELLS 1.4 % (0.0-0.19); PLATELET COUNT (AUTO) 301 K/uL (130-400); RED BLOOD CELL COUNT(AUTO) 4.24 MIL/uL (4.00-5.50); RED CELL DISTRIBUTION WIDTH 17.2 % (11.0-15.5); WHITE BLOOD COUNT (AUTO) 26.1 K/uL (4.8-10.8)
[2018-07-19 08:56] LABS: ALBUMIN 2.3 g/dL (3.5-5.0); BILIRUBIN,DIRECT 1.1 mg/dL (0.0-0.3); BILIRUBIN,TOTAL 2.3 mg/dL (0.2-1.0); CREATININE 3.3 mg/dL (0.5-1.5); POTASSIUM 3.3 mmol/L (3.5-5.1); TOTAL PROTEIN, SERUM 5.1 g/dL (6.0-8.3); URIC ACID 14.4 mg/dL (2.6-7.2)
[2018-07-19 09:28] LABS: MAGNESIUM 1.7 mg/dL (1.80-2.40); PHOSPHORUS 3.7 mg/dL (2.5-4.9)
[2018-07-19] MEDS: THIAMINE HCL 100 MG/ML 2ML VIAL IVP SCH (09:48)
[2018-07-19] MEDS: DRONEDARONE HYDROCHLORIDE 400 MG TABLET PO SCH ×2 (09:48→20:27)
--- NOTE | 2018-07-19 12:02 | NUR ---
CHART CHECK COMPLETED. PATIENT INFORMATION: Pt IS A 72 YEAR OLD FEMALE WITH THE FOLLOWING PROBLEM LIST: S/P CARDIO RESPIRATORY ARREST, SUSPECTED ANOXIC ENCEPHALOPATHY, ACUTE HYPOXIC AND HYPERCARBIC RESPIRATORY FAILURE, METABOLIC ACIDOSIS, SHOCK LIVER, ARANZA ON CKD, COPD HX OF TOBACCO, AFIB, CAD HX OF CABG. 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 SKILLED SPEECH AND SWALLOW EVALUATION IS RECOMMENDED 24HOURS S/P EXTUBATION. TRAY WORKER WILL FOLLOW Pt. Addendum: 07/19/18 at 1204 by BRANDY [facility] Amended: Links added.
[2018-07-19 14:47] LABS: ABG BASE EXCESS 3.8 mmol/L (-2.0-3.0); ABG HCO3 27.5 mmol/L (21.0-28.0); ABG OXYGEN SATURATION 95.1 % (95.0-99.0); ABG PCO2 38 mmHg (32-45)
--- NOTE | 2018-07-19 15:00 | NUR ---
ENDED CPAP TRIALS. PATIENT STARTED ON SIMV RATE 20, TV 400, PEEP 5, FIO2 40%.
--- NOTE | 2018-07-19 17:12 | NUR ---
RD Update RD notification for Tube Feeding Recommendations. Recommend Continuous Vital AF 1.2 @ goal of 50mls/hr (1200mL/1440kcal/90gms Protein). Flushes 125ml Q6hrs. Pt with Propofol at 9mls/hr. Pt seen by RD previously. Tube feeding recommendations placed in patient chart. RD to continue to monitor.
--- NOTE | 2018-07-19 20:00 | NUR ---
REPORTED TO ARACELI DIAZ NP THAT PATIENT IS VERY RESTLESS, AGITATED,GRIMACING, KICKING LEGS IN THE AIR AND BITING AND REACHING FOR THE ETT. RESPONDS NO TO PAIN BY SHAKING HER HEAD. DAUGHTER AT BEDSIDE. NEW ORDER FOR PRECEDEX, SEDATION VACATION AT 0600, HOLD TUBE FEEDING FOR NOW. PATIENT WITH RALES -CXR RESULT REPORTED AND ELEVATED BUN/CR RESULTS ALSO REPORTED.
[2018-07-19] MEDS: DEXMEDETOMIDINE HCL 400 MCG in SODIUM CHLORIDE 0.9% 100 ML IV SCH (20:50)
--- NOTE | 2018-07-19 22:00 | NUR ---
PATIENT CALM ON PRECEDEX, OPENS EYES TO COMMAND, DAUGHTER RESTING NOW ON BEDSIDE ROLL OUT COT.
[2018-07-20] VITALS (62 sets, daily range): BP systolic 63–191; BP diastolic 38–103
[2018-07-20] MEDS: IPRATROPIUM/ALBUTEROL SULFATE 3 ML SOLUTION IH SCH ×4 (00:10→18:25)
--- NOTE | 2018-07-20 02:45 | NUR ---
TEMPERATURE 94.3, GLUCOSE 169- WARMING BLANKET APPLIED. ROOM COOL-THERMOSTAT TURNED UP.
--- NOTE | 2018-07-20 04:00 | NUR ---
TEMP 97.5 ORALLY.
[2018-07-20 04:04] LABS: BASOPHILS % (AUTO) 0.1 % (0.0-5.0); HEMATOCRIT 30.2 % (36-48); LYMPHOCYTES % (AUTO) 3.3 % (21.0-51.0); MEAN CORPUSCULAR HEMOGLOBIN 25.4 pg (27.0-33.0); MEAN CORPUSCULAR VOLUME 79.5 fL (79-99); MONOCYTES % (AUTO) 4.3 % (3.0-13.0); NEUTROPHILS % (AUTO) 92.3 % (40.0-77.0); NUCLEATED RED BLOOD CELLS 0.7 % (0.0-0.19); PLATELET COUNT (AUTO) 204 K/uL (130-400); RED BLOOD CELL COUNT(AUTO) 3.81 MIL/uL (4.00-5.50); RED CELL DISTRIBUTION WIDTH 16.8 % (11.0-15.5); WHITE BLOOD COUNT (AUTO) 17.3 K/uL (4.8-10.8)
[2018-07-20 04:18] LABS: ALBUMIN 2.1 g/dL (3.5-5.0); BILIRUBIN,DIRECT 1.5 mg/dL (0.0-0.3); BILIRUBIN,TOTAL 2.5 mg/dL (0.2-1.0); CREATININE 3.4 mg/dL (0.5-1.5); MAGNESIUM 1.6 mg/dL (1.80-2.40); TOTAL PROTEIN, SERUM 4.5 g/dL (6.0-8.3)
[2018-07-20] MEDS: DEXMEDETOMIDINE HCL 400 MCG in SODIUM CHLORIDE 0.9% 100 ML IV SCH (04:58)
[2018-07-20] MEDS: POTASSIUM CHLORIDE 10MEQ/100ML 100 ML IV PRN (06:22)
--- NOTE | 2018-07-20 06:45 | NUR ---
TEMP 98.1 -CARLOS GGAR TURNED OFF.
--- NOTE | 2018-07-20 07:25 | NUR ---
INITIATED CPAP WEANING PER MD ORDER. WAKING UP MOVING AROUND IN BED, RESTLESS, ATTEMPTS TO OPEN EYES TO COMMAND. REACHING FOR ET TUBE. BILATERAL HANDS IN MITTS. DAUGHTER AT BEDSIDE. INSTRUCTED ON CPAP WEANING PROCEDURE. VERBALIZED UNDERSTANDING.
[2018-07-20] MEDS: FAMOTIDINE/PF 20 MG/2 ML VIAL IV SCH (08:09)
[2018-07-20] MEDS: THIAMINE HCL 100 MG/ML 2ML VIAL IVP SCH (08:10)
[2018-07-20] MEDS: LEVOFLOXACIN 500 MG/D5W 100 ML 100 ML IV SCH (08:10)
[2018-07-20] MEDS: ENOXAPARIN SODIUM 30 MG/0.3 ML SQ SCH (08:10)
[2018-07-20] MEDS: ZOSYN 3.375GM+NS 50ML 50 ML IV SCH ×2 (08:11→20:33)
--- NOTE | 2018-07-20 08:12 | NUR ---
CPAP WEANED TO 5/5 40% BY R.T. PER MD ORDER. TOLERATING VENT WEANING WELL. PERIODS OF ANXIETY AND RESTLESSNESS. DAUGHTER AT BEDSIDE.
--- NOTE | 2018-07-20 09:30 | NUR ---
RECEIVED CALL FROM DR LEE UPDATED REGARDING PATIENT STATUS & CURRENTLY ON VENT WEANING. STATED SHE WILL COME SEE PATIENT TODAY AROUND LUNCH TIME. UPDATED DAUGHTER AND SPOUSE.
--- NOTE | 2018-07-20 09:45 | NUR ---
BP78/45 HR 45/LEVOPHED SLIGHTLY AROUSABLE. ATTEMPTS TO OPEN EYES, CONTINUES SOMNOLENT. INITIATED LEVOPHED PER PROTOCOL.
--- NOTE | 2018-07-20 10:00 | NUR ---
CONTINUES ON CPAP 5/5 40% RSBI 120-125 PER R.T. ASSESSMENT. CONTINUES SOMNOLENT. SPOUSE AND DAUGHTER AT BEDSIDE.
[2018-07-20] MEDS: DRONEDARONE HYDROCHLORIDE 400 MG TABLET PO SCH ×2 (13:14→20:00)
[2018-07-20 13:47] LABS: ABG OXYGEN SATURATION 92.7 % (95.0-99.0); ABG PCO2 36 mmHg (32-45)
--- NOTE | 2018-07-20 13:55 | NUR ---
DR VELOZ HERE TO SEE PT UPDATED. HE SPOKE TO DAUGHTER AND SPOUSE REGARDING KIDNEY STATUS AND PLAN OF CARE. VERBALIZED UNDERSTANDING.
--- NOTE | 2018-07-20 14:00 | NUR ---
DR MENDOZA LEE HERE TO SEE PT UPDATED. SHE SPOKE TO FAMILY AT BEDSIDE IN DETAIL REGARDING STATUS AND PLAN OF CARE. QUESTIONS WERE ADDRESSED AND ANSWERED IN DETAIL BY .
--- NOTE | 2018-07-20 14:15 | NUR ---
DR VENCES HERE TO SEE PT HE SPOKE TO DR Whitney LEE REGARDING PATIENT STATUS AND PLAN OF CARE. HE ALSO SPOKE TO DAUGHTER AND SPOUSE AT BEDSIDE & IN DETAIL REGARDING CRITICAL STATUS AND PLAN OF CARE INCLUDING CONSULT FOR NEUROLOGY, EEG, REPEAT CT HEAD, LAB RESULTS, INABILITY TO EXTUBATE PATIENT AT THIS TIME D/T MENTAL STATUS. QUESTIONS WERE ADDRESSED AND ANSWERED IN DETAIL. DR VENCES ALSO SPOKE TO FAMILY FRIEND, DR Troy BUSCH, REQUESTED BY PT'S SPOUSE, AND INFORMED HIM ON PATIENT'S STATUS AND PLAN OF CARE.
--- NOTE | 2018-07-20 14:20 | NUR ---
BACK ON SEDATION & AC MODE AC 20/400/+5/40%. PRECEDEX INITIATED ORDERED BY DR VENCES.
[2018-07-20 16:21] LABS: INR 1.74 (0.85-1.15); PARTIAL THROMBOPLASTIN TIME 35.6 SEC (26.3-35.5); PROTHROMBIN TIME 18.1 SEC (9.6-11.6)
[2018-07-20] MEDS ORDERED: COMPOUND IV REFRIGERATED 1 EACH MISC ONE (17:38)
[2018-07-20] MEDS ORDERED: SUCCINYLCHOLINE 200MG/10ML SYR IVP SCH (17:45)
--- NOTE | 2018-07-20 18:30 | NUR ---
CENTRAL LINE RT IJ INSERTED BY DR VENCES CXR ORDERED. OK TO USE PER DR VENCES. INSERTION SITE OOZING. PLACED PRESSURE DRESSING OVER TEGADERM CHG. LEVOPHED WEANED OFF.
--- NOTE | 2018-07-20 19:00 | NUR ---
ENDORSED TO PM NURSE TOLERATED TUBE FEEDING AT 25ML/HR X4 HR, THEN 30ML/HR X1 HR. STOPPED FOR CENTRAL LINE INSERTION. CONTINUES ON HOLD PENDING CT HEAD. PRECEDEX CURRENTLY INFUSING AT 1MCG/KG/HR, AWAKENS WITH STIMULATION, OPENS EYES AND BEGINS THRASHING ARMS & LEGS. DR VENCES ORDERED PROPOFOL DRIP FOR SEDATION DURING CT. SPOUSE, DAUGHTER, AND FAMILY FRIEND IN ROOM. CURRENTLY PATIENT CALM AND IN NO APPARENT DISTRESS.
[2018-07-20] MEDS ORDERED: HYDRALAZINE HCL 20 MG/ML VIAL ONE (20:27)
[2018-07-20] MEDS ORDERED: HYDRALAZINE HCL 20 MG/ML VIAL IV PRN (20:30)
[2018-07-20] MEDS: MAGNESIUM 2GM PREMIX 50ML 50 ML IV PRN (20:44)
--- NOTE | 2018-07-20 23:30 | NUR ---
PATIENT TO CT HEAD WITHOUT CONTRAST. ACCOMPANIED BY RN ,RT. TOLERATED WELL.
[2018-07-21] VITALS (75 sets, daily range): BP systolic 65–190; BP diastolic 23–93
[2018-07-21] MEDS: IPRATROPIUM/ALBUTEROL SULFATE 3 ML SOLUTION IH SCH ×5 (00:01→23:19)
[2018-07-21] MEDS: PROPOFOL 1000 MG/100 ML IV PRN ×2 (03:14→21:44)
--- NOTE | 2018-07-21 04:00 | NUR ---
TEMP 94,CARLOS POWELL APPLIED.
[2018-07-21 04:39] LABS: HEMATOCRIT 27.6 % (36-48); MEAN CORPUSCULAR HEMOGLOBIN 26.6 pg (27.0-33.0); MEAN CORPUSCULAR HGB CONC 33.7 g/dL (32.0-36.0); NUCLEATED RED BLOOD CELLS 0.6 % (0.0-0.19); PLATELET COUNT (AUTO) 140 K/uL (130-400); RED CELL DISTRIBUTION WIDTH 17.1 % (11.0-15.5); WHITE BLOOD COUNT (AUTO) 12.7 K/uL (4.8-10.8)
[2018-07-21 04:46] LABS: CREATININE 3.5 mg/dL (0.5-1.5); MAGNESIUM 1.9 mg/dL (1.80-2.40)
[2018-07-21 04:48] LABS: POTASSIUM 2.9 mmol/L (3.5-5.1)
[2018-07-21] MEDS: POTASSIUM CHLORIDE 10MEQ/100ML 100 ML IV PRN (04:59)
--- NOTE | 2018-07-21 05:41 | NUR ---
TEMP 97.2 ORALLY.
[2018-07-21] MEDS: POTASSIUM CHLORIDE 10% ELIXIR 20 MEQ/15 ML UDCUP PO PRN (07:54)
--- NOTE | 2018-07-21 08:28 | NUR ---
CURRENT B/P 70/30, HR 56, UNABLE TO SCAN LEVOPHED 4MG/NS 250 ML, STARTED DRIP AT 2 MCG/MIN, PER ORDER. PAHARMACIST NYDIA HOLLAND MADE AWARE.
[2018-07-21] MEDS: THIAMINE HCL 100 MG/ML 2ML VIAL IVP SCH (08:30)
[2018-07-21] MEDS: FAMOTIDINE/PF 20 MG/2 ML VIAL IV SCH (08:32)
[2018-07-21] MEDS: ENOXAPARIN SODIUM 30 MG/0.3 ML SQ SCH (08:32)
[2018-07-21] MEDS: ZOSYN 3.375GM+NS 50ML 50 ML IV SCH ×2 (08:45→21:43)
[2018-07-21] MEDS ORDERED: SODIUM CHLORIDE 0.9% 1000ML 1,000 ML IV ONE (09:53)
--- NOTE | 2018-07-21 10:30 | NUR ---
DR AKINS HERE HE ASSESSED PATIENT. SPOKE TO SPOUSE AT BEDSIDE IN DETAIL REGARDING PATIENTS "GUARDED" STATUS AND PLAN OF CARE. MD TOLD SPOUSE THAT PATIENT DOES HAVE BRAIN STEM ACTIVITY AND EXPLAINED WHAT THIS MEANT. QUESTIONS ADDRESSED AND ANSWERED IN DETAIL BY .
[2018-07-21] MEDS ORDERED: PHARMACY COMMUNICATION MISC SCH (12:45)
[2018-07-21] MEDS ORDERED: SODIUM CHLORIDE 0.9% 1000ML 500 ML IV SCH (13:00)
[2018-07-21] MEDS ORDERED: SODIUM CHLORIDE 0.9% 1000ML 1,000 ML IV SCH (13:00)
--- NOTE | 2018-07-21 18:00 | NUR ---
VENT WEANING TOLERATED FOR 4 HRS TODAY VERY SOMNOLENT AND BECAME HYPOTENSIVE REQUIRING LEVOPHED DRIP. STARTED HAVING LABORED BREATHING WITH LOW TIDAL VOLUMES. DURING DR VALADEZ'S ROUNDS, HE ORDERED TO PLACE BACK ON SEDATION AND VENT BACK TO ASSIST CONTROL MODE AND TRY VENT WEANING AGAIN TOMORROW. DR VALADEZ SPOKE TO SPOUSE AT BEDSIDE IN DETAIL REGARDING STATUS AND PLAN OF CARE. QUESTIONS ADDRESSED AND ANSWERED IN DETAIL.
[2018-07-21] MEDS: DRONEDARONE HYDROCHLORIDE 400 MG TABLET PO SCH (20:00)
[2018-07-21] MEDS ORDERED: PROPOFOL 1000 MG/100 ML IV PRN (21:30)
[2018-07-21] MEDS ORDERED: SODIUM BICARB 8.4% 50ML SYRINGE IVP SCH ×2 (21:30)
[2018-07-22] VITALS (39 sets, daily range): BP systolic 110–189; BP diastolic 48–99
[2018-07-22 04:27] LABS: HEMATOCRIT 27.6 % (36-48); MEAN CORPUSCULAR HEMOGLOBIN 25.6 pg (27.0-33.0); MEAN CORPUSCULAR HGB CONC 32.2 g/dL (32.0-36.0); MEAN CORPUSCULAR VOLUME 79.2 fL (79-99); NUCLEATED RED BLOOD CELLS 0.4 % (0.0-0.19); PLATELET COUNT (AUTO) 137 K/uL (130-400); RED BLOOD CELL COUNT(AUTO) 3.49 MIL/uL (4.00-5.50); RED CELL DISTRIBUTION WIDTH 17.1 % (11.0-15.5); WHITE BLOOD COUNT (AUTO) 14.4 K/uL (4.8-10.8)
[2018-07-22 04:40] LABS: ALBUMIN 1.9 g/dL (3.5-5.0); BILIRUBIN,DIRECT 2.1 mg/dL (0.0-0.3); CREATININE 3.4 mg/dL (0.5-1.5); MAGNESIUM 2.1 mg/dL (1.80-2.40); PHOSPHORUS 3.5 mg/dL (2.5-4.9); TOTAL PROTEIN, SERUM 4.6 g/dL (6.0-8.3)
[2018-07-22 04:42] LABS: POTASSIUM 2.8 mmol/L (3.5-5.1)
[2018-07-22] MEDS: POTASSIUM CHLORIDE 10% ELIXIR 20 MEQ/15 ML UDCUP PO PRN ×2 (05:13→16:16)
[2018-07-22] MEDS: POTASSIUM CHLORIDE 10MEQ/100ML 100 ML IV PRN ×2 (05:13→13:23)
[2018-07-22] MEDS: IPRATROPIUM/ALBUTEROL SULFATE 3 ML SOLUTION IH SCH ×4 (06:03→23:32)
--- NOTE | 2018-07-22 08:00 | NUR ---
Jensen CAVAZOS TERRITORY SALES MANAGER AT BEDSIDE IN TO SEE PT. PLAN OF CARE DISCUSSED. NEW ORDERS RECEIVED AND NOTED.
--- NOTE | 2018-07-22 08:30 | NUR ---
PT ABLE TO FOLLOW COMMANDS, MOVING ALL EXTREMITIES, OPENS EYES OCCASIONALLY TO COMMAND. CPAP TRIAL INITIATED ORDERED. TOLERATING WELL.
[2018-07-22] MEDS ORDERED: HYDRALAZINE HCL 20 MG/ML VIAL IV PRN (08:45)
[2018-07-22] MEDS ORDERED: PHARMACY COMMUNICATION MISC SCH (08:45)
[2018-07-22] MEDS ORDERED: MIDODRINE HCL 5 MG TABLET PO PRN (08:45)
[2018-07-22] MEDS: LEVOFLOXACIN 250 MG/D5W 50ML 50 ML IVPB SCH (09:21)
[2018-07-22] MEDS: FUROSEMIDE 10 MG/ML 4ML VIAL IV SCH (09:22)
[2018-07-22] MEDS: THIAMINE HCL 100 MG/ML 2ML VIAL IVP SCH (09:22)
[2018-07-22] MEDS: FAMOTIDINE/PF 20 MG/2 ML VIAL IV SCH (09:22)
[2018-07-22] MEDS: ZOSYN 3.375GM+NS 50ML 50 ML IV SCH ×2 (09:22→22:01)
[2018-07-22] MEDS: ENOXAPARIN SODIUM 30 MG/0.3 ML SQ SCH (09:23)
[2018-07-22 09:58] LABS: ABG OXYGEN SATURATION 98.6 % (95.0-99.0); ABG PCO2 43 mmHg (32-45)
--- NOTE | 2018-07-22 11:58 | NUR ---
NUTRITION F/U: RN REPORTS NO NUTRITIONAL CONCERNS. CURRENTLY TF IS ON HOLD FOR WEAN TRIALS. RD TO CONTINUE MONITORING FOR DIET ADVANCEMENT AND APPROPRIATE DIET PLACEMENT. RECOMMENDATIONS: WHEN MEDICALLY FEASIBLE, ADVANCE DIET THERAPY TO [id number], HEART HEALTHY DIET THERAPY. Addendum: 07/22/18 at [address] Amended: Links added.
[2018-07-22] MEDS ORDERED: ZINC OXIDE OINT 56.7 GM TP PRN (13:15)
[2018-07-22] MEDS: NYSTATIN 15 GM POWDER TP SCH ×2 (13:24→22:02)
[2018-07-22] MEDS ORDERED: FENTANYL CITRATE PF 50 MCG/1 ML 2ML VIAL IVP PRN (14:00)
--- NOTE | 2018-07-22 14:00 | NUR ---
DR. SWAN AT BEDSIDE. PLAN OF CARE DISCUSSED. DAUGHTER AT BEDSIDE ALL QUESTIONS ANSWERED.
--- NOTE | 2018-07-22 14:27 | NUR ---
PT CONTINUES ON CPAP, PT APPEARS MORE AWAKE AT THIS TIME, OPENING EYES AND SUSTAINING HEAD LIFT. DAUGHTER AT BEDSIDE. CONTINUE TO MONITOR PT.
[2018-07-22] MEDS: DRONEDARONE HYDROCHLORIDE 400 MG TABLET PO SCH (22:01)
[2018-07-22] MEDS ORDERED: LORAZEPAM 2 MG/ML 1 ML VIAL IVP PRN (22:45)
[2018-07-23] VITALS (25 sets, daily range): BP systolic 129–176; BP diastolic 58–121
[2018-07-23] MEDS: DEXTROSE 50%-WATER 50 ML DISP.SYRIN IV PRN (00:33)
[2018-07-23 03:54] LABS: ABG BASE EXCESS 5.3 mmol/L (-2.0-3.0); ABG HCO3 27.7 mmol/L (21.0-28.0); ABG PCO2 34 mmHg (32-45)
[2018-07-23 04:52] LABS: BASOPHILS % (AUTO) 0.9 % (0.0-5.0); EOSINOPHILS % (AUTO) 0.7 % (0.0-8.0); HEMATOCRIT 26.2 % (36-48); LYMPHOCYTES % (AUTO) 3.3 % (21.0-51.0); MEAN CORPUSCULAR HEMOGLOBIN 26.6 pg (27.0-33.0); MEAN CORPUSCULAR HGB CONC 33.1 g/dL (32.0-36.0); MEAN CORPUSCULAR VOLUME 80.2 fL (79-99); MONOCYTES % (AUTO) 7.2 % (3.0-13.0); NEUTROPHILS % (AUTO) 87.9 % (40.0-77.0); NUCLEATED RED BLOOD CELLS 0.3 % (0.0-0.19); PLATELET COUNT (AUTO) 99 K/uL (130-400); RED BLOOD CELL COUNT(AUTO) 3.27 MIL/uL (4.00-5.50); RED CELL DISTRIBUTION WIDTH 16.7 % (11.0-15.5); WHITE BLOOD COUNT (AUTO) 16.9 K/uL (4.8-10.8)
[2018-07-23 04:57] LABS: CREATININE 3.2 mg/dL (0.5-1.5); MAGNESIUM 1.9 mg/dL (1.80-2.40); PHOSPHORUS 3.5 mg/dL (2.5-4.9); POTASSIUM 3.1 mmol/L (3.5-5.1)
[2018-07-23] MEDS: IPRATROPIUM/ALBUTEROL SULFATE 3 ML SOLUTION IH SCH ×4 (05:59→23:48)
--- NOTE | 2018-07-23 08:30 | NUR ---
PLACED ON CPAP ORDERED. TOLERATING WELL. FOLLOWING SIMPLE COMMANDS, UNABLE TO KEEP EYES OPEN.
[2018-07-23] MEDS: FUROSEMIDE 10 MG/ML 4ML VIAL IV SCH ×2 (08:45→15:27)
[2018-07-23] MEDS: FAMOTIDINE/PF 20 MG/2 ML VIAL IV SCH (09:00)
[2018-07-23] MEDS: NYSTATIN 15 GM POWDER TP SCH ×2 (09:00→19:22)
[2018-07-23] MEDS: THIAMINE HCL 100 MG/ML 2ML VIAL IVP SCH (09:00)
[2018-07-23] MEDS: ENOXAPARIN SODIUM 30 MG/0.3 ML SQ SCH (09:00)
[2018-07-23] MEDS: ZOSYN 3.375GM+NS 50ML 50 ML IV SCH ×2 (09:30→19:21)
[2018-07-23 09:59] LABS: ABG BASE EXCESS 4.4 mmol/L (-2.0-3.0); ABG HCO3 27.3 mmol/L (21.0-28.0); ABG PCO2 35 mmHg (32-45)
--- NOTE | 2018-07-23 12:58 | NUR ---
DR. LEE IN TO SEE PT. PLAN OF CARE DISCUSSED WITH AT BEDSIDE.
[2018-07-23] MEDS ORDERED: HALOPERIDOL DECANOATE 100 MG/ML ML IM PRN ×2 (13:00)
[2018-07-23] MEDS ORDERED: HALOPERIDOL LACTATE 5 MG/ML VIAL IM PRN ×2 (13:00→13:15)
[2018-07-23] MEDS ORDERED: POTASSIUM CHLORIDE 20MEQ/100ML 100 ML IV SCH (13:15)
[2018-07-23] MEDS ORDERED: POTASSIUM CHLORIDE 20 MEQ/100 ML BAG IV SCH (13:15)
[2018-07-23] MEDS: LACTOBACILLUS RHAMNOSUS GG 1 EACH CAP.SPRINK PO SCH ×2 (13:31→19:20)
[2018-07-23] MEDS: DEXTROSE 5 % AND 0.9 % NACL 1,000 ML IV SCH (13:31)
--- NOTE | 2018-07-23 14:25 | NUR ---
DR. SWAN IN TO SEE PT. PLAN OF CARE DISCUSSED WITH . NEW ORDERS RECEIVED AND NOTED.
[2018-07-23] MEDS: ZINC OXIDE OINT 56.7 GM TP SCH ×2 (15:47→19:21)
[2018-07-23] MEDS: DRONEDARONE HYDROCHLORIDE 400 MG TABLET PO SCH (19:20)
--- NOTE | 2018-07-23 20:00 | NUR ---
Lethargic. Restless for short period then falls asleep. Initial assessment . Comfort measures done. Repositioned. No family in room.
[2018-07-24] VITALS (29 sets, daily range): BP systolic 117–186; BP diastolic 61–118
[2018-07-24] MEDS: HALOPERIDOL LACTATE 5 MG/ML VIAL IM PRN (00:01)
--- NOTE | 2018-07-24 00:19 | NUR ---
Fully awake now, biting ETT. Haldol 2 mg given IM for agitation.
--- NOTE | 2018-07-24 00:28 | NUR ---
Sleeping. No visible signs of discomfort .
[2018-07-24] MEDS: PROPOFOL 1000 MG/100 ML IV PRN ×2 (01:25→20:09)
[2018-07-24] MEDS: FUROSEMIDE 10 MG/ML 4ML VIAL IV SCH ×2 (02:06→13:51)
[2018-07-24 03:50] LABS: HEMATOCRIT 24.9 % (36-48); MEAN CORPUSCULAR HEMOGLOBIN 25.4 pg (27.0-33.0); MEAN CORPUSCULAR VOLUME 79.5 fL (79-99); NUCLEATED RED BLOOD CELLS 0.3 % (0.0-0.19); PLATELET COUNT (AUTO) 94 K/uL (130-400); RED BLOOD CELL COUNT(AUTO) 3.13 MIL/uL (4.00-5.50); RED CELL DISTRIBUTION WIDTH 17.3 % (11.0-15.5); WHITE BLOOD COUNT (AUTO) 18.3 K/uL (4.8-10.8)
[2018-07-24 04:33] LABS: CREATININE 2.9 mg/dL (0.5-1.5)
[2018-07-24] MEDS: POTASSIUM CHLORIDE 20 MEQ/100 ML BAG IV PRN (05:00)
[2018-07-24] MEDS: IPRATROPIUM/ALBUTEROL SULFATE 3 ML SOLUTION IH SCH ×4 (06:34→23:42)
--- NOTE | 2018-07-24 07:35 | NUR ---
DR BURDICK HERE TO SEE PT UPDATED. ORDERS RECEIVED AND CARRIED OUT.
--- NOTE | 2018-07-24 09:27 | NUR ---
ROUNDS DR. LINDSEY IN TO SEE PATIENT. MD ASKED IF POTASSIUM HAD BEEN COVERED. I INFORMED HIM PT RECEIVED POTASSIUM EARLIER TODAY.
[2018-07-24] MEDS: LACTOBACILLUS RHAMNOSUS GG 1 EACH CAP.SPRINK PO SCH ×3 (09:33→20:26)
[2018-07-24] MEDS: ENOXAPARIN SODIUM 30 MG/0.3 ML SQ SCH (09:33)
[2018-07-24] MEDS: ZOSYN 3.375GM+NS 50ML 50 ML IV SCH (09:34)
[2018-07-24] MEDS: ZINC OXIDE OINT 56.7 GM TP SCH ×4 (09:34→20:27)
[2018-07-24] MEDS: FAMOTIDINE/PF 20 MG/2 ML VIAL IV SCH (09:34)
[2018-07-24] MEDS: THIAMINE HCL 100 MG TABLET NG SCH (09:34)
[2018-07-24] MEDS: NYSTATIN 15 GM POWDER TP SCH ×2 (09:34→20:27)
[2018-07-24] MEDS: LEVOFLOXACIN 250 MG/D5W 50ML 50 ML IVPB SCH (09:34)
--- NOTE | 2018-07-24 10:18 | NUR ---
Begin CPAP trial at PEEP 5, PS 10 Addendum: 07/24/18 at 1029 by VALERIA MCKINNEY RT Amended: Links added.
[2018-07-24 11:37] LABS: ABG BASE EXCESS 4.2 mmol/L (-2.0-3.0); ABG HCO3 29.1 mmol/L (21.0-28.0); ABG OXYGEN SATURATION 98.2 % (95.0-99.0); ABG PCO2 44 mmHg (32-45)
[2018-07-24] MEDS: DEXTROSE 5 % AND 0.9 % NACL 1,000 ML IV SCH (12:45)
--- NOTE | 2018-07-24 14:09 | NUR ---
ROUNDS DR. LEE IN TO SEE PATIENT. SPOKE WITH DAUGHTER. NEW ORDERS RECEIVED. MD INQUIRED ABOUT ORDER FRO C-DIFF. I INFORMED HER PER PROTOCOL, PT TO HAVE A DIETARY REEVALUATION FIRST. MD IN AGREEMENT. WILL CONT TO MONITOR.
--- NOTE | 2018-07-24 14:31 | NUR ---
Pulled ET tube from 23cm to 22cm. Addendum: 07/24/18 at 1439 by VALERIA MCKINNEY RT Amended: Links added.
[2018-07-24] MEDS: METRONIDAZOLE 500 MG TABLET NG SCH ×2 (15:47→23:54)
--- NOTE | 2018-07-24 18:13 | NUR ---
PT CONT ON CPAP, NO SEDATION. TOLERATING WELL.
[2018-07-24] MEDS: DRONEDARONE HYDROCHLORIDE 400 MG TABLET PO SCH (20:50)
[2018-07-24] MEDS ORDERED: POTASSIUM CHLORIDE 10% ELIXIR 20 MEQ/15 ML UDCUP PO SCH (21:00)
[2018-07-25] VITALS (29 sets, daily range): BP systolic 125–179; BP diastolic 57–102
[2018-07-25] MEDS: FUROSEMIDE 10 MG/ML 4ML VIAL IV SCH ×2 (01:55→13:09)
[2018-07-25] MEDS: PROPOFOL 1000 MG/100 ML IV PRN (02:27)
[2018-07-25] MEDS: DEXTROSE 5 % AND 0.9 % NACL 1,000 ML IV SCH (02:27)
[2018-07-25 04:39] LABS: HEMATOCRIT 24.3 % (36-48); MEAN CORPUSCULAR HEMOGLOBIN 26.5 pg (27.0-33.0); MEAN CORPUSCULAR HGB CONC 33.3 g/dL (32.0-36.0); MEAN CORPUSCULAR VOLUME 79.4 fL (79-99); NUCLEATED RED BLOOD CELLS 0.3 % (0.0-0.19); PLATELET COUNT (AUTO) 87 K/uL (130-400); RED BLOOD CELL COUNT(AUTO) 3.07 MIL/uL (4.00-5.50); RED CELL DISTRIBUTION WIDTH 17.4 % (11.0-15.5); WHITE BLOOD COUNT (AUTO) 17.6 K/uL (4.8-10.8)
[2018-07-25 05:10] LABS: BILIRUBIN,DIRECT 2.2 mg/dL (0.0-0.3); BILIRUBIN,TOTAL 3.2 mg/dL (0.2-1.0); CREATININE 2.6 mg/dL (0.5-1.5); POTASSIUM 3.1 mmol/L (3.5-5.1); TOTAL PROTEIN, SERUM 5.5 g/dL (6.0-8.3)
[2018-07-25] MEDS: METRONIDAZOLE 500 MG TABLET NG SCH ×3 (05:32→22:30)
[2018-07-25] MEDS: IPRATROPIUM/ALBUTEROL SULFATE 3 ML SOLUTION IH SCH (06:16)
[2018-07-25] MEDS: POTASSIUM CHLORIDE 10% ELIXIR 20 MEQ/15 ML UDCUP PO PRN (06:46)
--- NOTE | 2018-07-25 07:30 | NUR ---
PT IN BED, AAOX2, NO ACUTE DISTRESS NOTED. PT DENIES PAIN AT THIS TIME. CONTINUES ON AC 15/TV400/5/40% WITH SATURATIONS 100%. SEDATION WAS TURNED OFF AT 0600 FOR PLANS TO WEAN OFF VENT. ETT 7.5 AND 22 AT THE LIP. TELE NOTED WITH SR 80s WITH PVC TO ST 130s WITH DURATION 1-2 MINUTES. WAFFLE BOOTS ON BILATERALLY. HOB ELEVATED. PATIENT AB;E TO FOLLOW COMMANDS WELL. WILL CONT TO MONITOR WELL. Addendum: 07/25/18 at 0821 by ERIC LINDSEY RN RN Amended: Links added.
[2018-07-25] MEDS: LACTOBACILLUS RHAMNOSUS GG 1 EACH CAP.SPRINK PO SCH ×3 (07:48→20:55)
[2018-07-25] MEDS: THIAMINE HCL 100 MG TABLET NG SCH (07:48)
[2018-07-25] MEDS: ENOXAPARIN SODIUM 30 MG/0.3 ML SQ SCH (07:49)
[2018-07-25] MEDS: FAMOTIDINE 20MG TAB 20 MG TAB NG SCH (07:49)
[2018-07-25] MEDS: ZINC OXIDE OINT 56.7 GM TP SCH ×4 (07:50→20:55)
[2018-07-25] MEDS: NYSTATIN 15 GM POWDER TP SCH ×2 (07:50→20:56)
--- NOTE | 2018-07-25 08:24 | NUR ---
CPAP 5/5 40% AT THIS TIME.
[2018-07-25] MEDS ORDERED: APIX5TAB PO (09:05)
[2018-07-25] MEDS: POTASSIUM CHLORIDE 10% ELIXIR 20 MEQ/15 ML UDCUP PO SCH ×2 (10:17→20:55)
[2018-07-25] MEDS ORDERED: LABETALOL HCL 5 MG/ML 20ML VIAL IV ONE (11:47)
[2018-07-25] MEDS ORDERED: IPRATROPIUM 0.5 MG/2.5 ML INH IH ONE (11:48)
--- NOTE | 2018-07-25 15:19 | NUR ---
RD Follow up RD notification received. Pt with loose stools/diarrhea still receiving antibiotics;antidiarrheal agents in place. Pt remains with weaning trials, feedings continued at night as per EMR. Pt LBM 07/21/18. Pt monitored labs:K 3.1, BUN 46, Cr 2.6, GFR 19, Glu 173, Ca 8.0, T. Bili 3.2, AST 94, ALT 178, Alb 2.0. RD to continue to monitor. Please notify RD as additional nutrition concerns arise. Thank you. Addendum: 07/25/18 at [address] Amended: Links added.
[2018-07-25] MEDS: IPRATROPIUM 0.5 MG/2.5 ML INH IH SCH ×2 (18:51→23:39)
[2018-07-25] MEDS: DRONEDARONE HYDROCHLORIDE 400 MG TABLET PO SCH (19:42)
[2018-07-25] MEDS: ACETAMINOPHEN 325 MG TAB PO PRN (19:42)
[2018-07-26] VITALS (34 sets, daily range): BP systolic 101–170; BP diastolic 49–93
[2018-07-26] MEDS: FUROSEMIDE 10 MG/ML 4ML VIAL IV SCH ×2 (01:19→08:49)
[2018-07-26] MEDS: PROPOFOL 1000 MG/100 ML IV PRN ×2 (01:19→21:23)
[2018-07-26 03:55] LABS: HEMATOCRIT 25.7 % (36-48); MEAN CORPUSCULAR HEMOGLOBIN 25.7 pg (27.0-33.0); MEAN CORPUSCULAR HGB CONC 31.8 g/dL (32.0-36.0); NUCLEATED RED BLOOD CELLS 0.5 % (0.0-0.19); PLATELET COUNT (AUTO) 113 K/uL (130-400); RED BLOOD CELL COUNT(AUTO) 3.17 MIL/uL (4.00-5.50); RED CELL DISTRIBUTION WIDTH 17.7 % (11.0-15.5); WHITE BLOOD COUNT (AUTO) 17.6 K/uL (4.8-10.8)
[2018-07-26 04:11] LABS: CREATININE 2.5 mg/dL (0.5-1.5); MAGNESIUM 1.2 mg/dL (1.80-2.40)
[2018-07-26 04:30] LABS: POTASSIUM 2.8 mmol/L (3.5-5.1)
[2018-07-26] MEDS: METRONIDAZOLE 500 MG TABLET NG SCH ×3 (05:38→21:23)
[2018-07-26] MEDS: POTASSIUM CHLORIDE 10% ELIXIR 20 MEQ/15 ML UDCUP PO PRN (05:38)
[2018-07-26] MEDS: IPRATROPIUM 0.5 MG/2.5 ML INH IH SCH ×4 (06:17→23:17)
[2018-07-26] MEDS: MAGNESIUM 2GM PREMIX 50ML 50 ML IV PRN ×2 (07:42→08:47)
[2018-07-26] MEDS: POTASSIUM CHLORIDE 20 MEQ/100 ML BAG IV PRN (07:48)
[2018-07-26] MEDS: POTASSIUM CHLORIDE 10% ELIXIR 20 MEQ/15 ML UDCUP PO SCH ×2 (08:49→19:58)
[2018-07-26] MEDS: LACTOBACILLUS RHAMNOSUS GG 1 EACH CAP.SPRINK PO SCH ×3 (08:49→19:58)
[2018-07-26] MEDS: THIAMINE HCL 100 MG TABLET NG SCH (08:49)
[2018-07-26] MEDS: ENOXAPARIN SODIUM 30 MG/0.3 ML SQ SCH (08:50)
[2018-07-26] MEDS: ZINC OXIDE OINT 56.7 GM TP SCH ×4 (08:51→19:59)
[2018-07-26] MEDS: NYSTATIN 15 GM POWDER TP SCH ×2 (08:52→19:59)
[2018-07-26] MEDS: FAMOTIDINE 20MG TAB 20 MG TAB NG SCH (08:54)
[2018-07-26 12:12] LABS: ABG BASE EXCESS 4.6 mmol/L (-2.0-3.0); ABG OXYGEN SATURATION 98.7 % (95.0-99.0); ABG PCO2 47 mmHg (32-45)
--- NOTE | 2018-07-26 13:15 | NUR ---
DISCONTINUED OGT, INSTRUCTED PER NAINA, CATHETER INTACT. INSERTED RT NARE NGT, 14 FR, TOLERATED PROCUDURE WELL
[2018-07-26 13:35] LABS: MAGNESIUM 2.8 mg/dL (1.80-2.40); POTASSIUM 3.6 mmol/L (3.5-5.1)
[2018-07-26] MEDS ORDERED: DEXAMETHASONE SOD PHOSPHATE 4 MG/ML 1ML VIAL IVP SCH (14:30)
--- NOTE | 2018-07-26 14:30 | NUR ---
DR CHEW AT BEDSIDE, LEAK TEST PERFORMED, FAILED, NEW ORDERS GIVEN TO START DEXSAMETHASONE 10 MG IV Q 12 HOURS. WILL REMAIN WITH CPAP TRIALS. ORDERED FOR LEAK TEST AND SBT IN AM.
[2018-07-26] MEDS ORDERED: POTASSIUM PHOS 15 mMOL+NS250ML 250 ML IV PRN (15:30)
[2018-07-26] MEDS: DEXAMETHASONE 10MG/ML 1ML VIAL 10 MG in SODIUM CHLORIDE 0.9% 50 ML IV SCH (15:34)
[2018-07-26] MEDS: DEXTROSE 5 % AND 0.9 % NACL 1,000 ML IV SCH (17:42)
[2018-07-26] MEDS: DRONEDARONE HYDROCHLORIDE 400 MG TABLET PO SCH (19:58)
--- NOTE | 2018-07-26 20:00 | NUR ---
Awakens easily. Attempts to pull at ETT/NGT. No family in room. Comfort measures done. Repositioned
--- NOTE | 2018-07-26 22:00 | NUR ---
Back on Assist control. Sedated on Propofol for patient comfort/sedation. Repositioned for comfort.
[2018-07-27] VITALS (36 sets, daily range): BP systolic 115–175; BP diastolic 63–105
[2018-07-27] MEDS: DEXAMETHASONE 10MG/ML 1ML VIAL 10 MG in SODIUM CHLORIDE 0.9% 50 ML IV SCH ×2 (02:49→14:25)
[2018-07-27 05:38] LABS: ALBUMIN 2.1 g/dL (3.5-5.0); BILIRUBIN,TOTAL 2.2 mg/dL (0.2-1.0); PHOSPHORUS 3.4 mg/dL (2.5-4.9); POTASSIUM 3.7 mmol/L (3.5-5.1); TOTAL PROTEIN, SERUM 5.7 g/dL (6.0-8.3)
[2018-07-27 05:39] LABS: ABG BASE EXCESS 6.5 mmol/L (-2.0-3.0); ABG HCO3 27.3 mmol/L (21.0-28.0); ABG PCO2 29 mmHg (32-45)
[2018-07-27] MEDS: PROPOFOL 1000 MG/100 ML IV PRN ×2 (05:43→18:28)
[2018-07-27 05:47] LABS: HEMATOCRIT 25.5 % (36-48); MEAN CORPUSCULAR HEMOGLOBIN 26.3 pg (27.0-33.0); MEAN CORPUSCULAR HGB CONC 32.6 g/dL (32.0-36.0); MEAN CORPUSCULAR VOLUME 80.6 fL (79-99); NUCLEATED RED BLOOD CELLS 0.3 % (0.0-0.19); PLATELET COUNT (AUTO) 122 K/uL (130-400); RED BLOOD CELL COUNT(AUTO) 3.16 MIL/uL (4.00-5.50); RED CELL DISTRIBUTION WIDTH 17.9 % (11.0-15.5); WHITE BLOOD COUNT (AUTO) 12.7 K/uL (4.8-10.8)
[2018-07-27] MEDS: METRONIDAZOLE 500 MG TABLET NG SCH ×3 (05:51→22:04)
[2018-07-27 05:56] LABS: CREATININE 2.3 mg/dL (0.5-1.5); MAGNESIUM 1.7 mg/dL (1.80-2.40)
[2018-07-27] MEDS: IPRATROPIUM 0.5 MG/2.5 ML INH IH SCH ×4 (06:34→23:51)
[2018-07-27] MEDS: MAGNESIUM 2GM PREMIX 50ML 50 ML IV PRN (07:50)
--- NOTE | 2018-07-27 07:58 | NUR ---
SEDATION TURNED AT 0740, LEAK TEST PERFORMED PER RT AT BEDSIDE, FAILED. CPAP TRIAL STARTED AT THIS TIME 11/11, 40 % FIO2, WILL CONTINUE TO MONITOR
[2018-07-27] MEDS: FUROSEMIDE 10 MG/ML 4ML VIAL IV SCH (08:05)
[2018-07-27] MEDS: FAMOTIDINE 20MG TAB 20 MG TAB NG SCH (08:05)
[2018-07-27] MEDS: POTASSIUM CHLORIDE 10% ELIXIR 20 MEQ/15 ML UDCUP PO SCH ×2 (08:05→20:41)
[2018-07-27] MEDS: THIAMINE HCL 100 MG TABLET NG SCH (08:05)
[2018-07-27] MEDS: ENOXAPARIN SODIUM 30 MG/0.3 ML SQ SCH (08:06)
[2018-07-27] MEDS: ZINC OXIDE OINT 56.7 GM TP SCH ×4 (08:06→20:43)
[2018-07-27] MEDS: NYSTATIN 15 GM POWDER TP SCH ×2 (08:07→20:43)
[2018-07-27] MEDS: LACTOBACILLUS RHAMNOSUS GG 1 EACH CAP.SPRINK PO SCH ×3 (08:11→20:41)
[2018-07-27] MEDS ORDERED: COMPOUND IV MISC 1 EACH IVSOLN MISC PRN (13:15)
[2018-07-27] MEDS: DRONEDARONE HYDROCHLORIDE 400 MG TABLET PO SCH (20:41)
[2018-07-27] MEDS: DEXTROSE 5 % AND 0.9 % NACL 1,000 ML IV SCH (20:42)
[2018-07-28] VITALS (38 sets, daily range): BP systolic 147–182; BP diastolic 67–105
[2018-07-28] MEDS ORDERED: GLUCAGON 1MG KIT 1 MG ML IM PRN (00:15)
[2018-07-28] MEDS ORDERED: DEXTROSE 50%-WATER 50 ML DISP.SYRIN IV PRN (00:15)
[2018-07-28] MEDS: PROPOFOL 1000 MG/100 ML IV PRN (00:18)
[2018-07-28] MEDS ORDERED: INSULIN HUMULIN R 100 UNIT/ML 3ML ONE (00:54)
[2018-07-28] MEDS: INSULIN HUMULIN R 100 UNIT/ML 3ML SQ SCH ×4 (00:55→18:00)
[2018-07-28] MEDS: DEXAMETHASONE 10MG/ML 1ML VIAL 10 MG in SODIUM CHLORIDE 0.9% 50 ML IV SCH (02:26)
[2018-07-28 04:30] LABS: HEMATOCRIT 25.2 % (36-48); MEAN CORPUSCULAR HEMOGLOBIN 25.6 pg (27.0-33.0); MEAN CORPUSCULAR HGB CONC 31.8 g/dL (32.0-36.0); MEAN CORPUSCULAR VOLUME 80.5 fL (79-99); NUCLEATED RED BLOOD CELLS 0.1 % (0.0-0.19); PLATELET COUNT (AUTO) 165 K/uL (130-400); RED BLOOD CELL COUNT(AUTO) 3.13 MIL/uL (4.00-5.50); RED CELL DISTRIBUTION WIDTH 17.7 % (11.0-15.5); WHITE BLOOD COUNT (AUTO) 11.6 K/uL (4.8-10.8)
[2018-07-28 04:44] LABS: CREATININE 2.3 mg/dL (0.5-1.5); MAGNESIUM 2.5 mg/dL (1.80-2.40)
[2018-07-28] MEDS: POTASSIUM CHLORIDE 20 MEQ/100 ML BAG IV PRN (04:59)
[2018-07-28] MEDS: METRONIDAZOLE 500 MG TABLET NG SCH ×3 (05:14→22:26)
[2018-07-28] MEDS: IPRATROPIUM 0.5 MG/2.5 ML INH IH SCH ×4 (06:22→23:15)
[2018-07-28] MEDS: FUROSEMIDE 10 MG/ML 4ML VIAL IV SCH (08:05)
[2018-07-28] MEDS: LACTOBACILLUS RHAMNOSUS GG 1 EACH CAP.SPRINK PO SCH ×3 (08:05→20:10)
[2018-07-28] MEDS: POTASSIUM CHLORIDE 10% ELIXIR 20 MEQ/15 ML UDCUP PO SCH ×2 (08:05→20:11)
[2018-07-28] MEDS: THIAMINE HCL 100 MG TABLET NG SCH (08:06)
[2018-07-28] MEDS: FAMOTIDINE 20MG TAB 20 MG TAB NG SCH (08:06)
[2018-07-28] MEDS: ENOXAPARIN SODIUM 30 MG/0.3 ML SQ SCH (08:06)
[2018-07-28] MEDS: ZINC OXIDE OINT 56.7 GM TP SCH ×4 (08:07→20:15)
[2018-07-28] MEDS: NYSTATIN 15 GM POWDER TP SCH ×2 (08:07→20:15)
[2018-07-28 10:57] LABS: ABG BASE EXCESS 2.2 mmol/L (-2.0-3.0); ABG HCO3 27.8 mmol/L (21.0-28.0); ABG OXYGEN SATURATION 99.1 % (95.0-99.0); ABG PCO2 47 mmHg (32-45)
[2018-07-28] MEDS: DEXTROSE 5 % AND 0.9 % NACL 1,000 ML IV SCH (12:45)
--- NOTE | 2018-07-28 15:05 | NUR ---
DR BURDICK AT BEDSIDE, EXTUBATED AT THIS TIME, PLACED ON VENTI MASK AT 60%, NO STRIDOR NOTED, O2 SAT NOTED AT 100%. RT AT BEDSIDE.
[2018-07-28] MEDS ORDERED: RACEPINEPHRINE HCL 2.25% 0.5 ML NEB SOLN NEB PRN (15:15)
[2018-07-28 16:57] LABS: ABG BASE EXCESS 3.5 mmol/L (-2.0-3.0); ABG HCO3 29.2 mmol/L (21.0-28.0); ABG OXYGEN SATURATION 96.2 % (95.0-99.0); ABG PCO2 48 mmHg (32-45)
[2018-07-28] MEDS: DRONEDARONE HYDROCHLORIDE 400 MG TABLET PO SCH (20:10)
[2018-07-28] MEDS: ACETAMINOPHEN 325 MG TAB PO PRN (20:12)
[2018-07-28] MEDS: SODIUM CHLORIDE 0.9% 1000ML 1,000 ML IV SCH (22:30)
[2018-07-28] MEDS ORDERED: SODIUM CHLORIDE 0.9% 1000ML 1,000 ML IV ONE (23:13)
[2018-07-28] MEDS: LABETALOL 20 MG/4 ML DISP.SYRIN IV PRN (23:40)
[2018-07-29] VITALS (26 sets, daily range): BP systolic 103–169; BP diastolic 58–86
[2018-07-29 04:41] LABS: BASOPHILS % (AUTO) 0.2 % (0.0-5.0); HEMATOCRIT 26.2 % (36-48); LYMPHOCYTES % (AUTO) 5.2 % (21.0-51.0); MEAN CORPUSCULAR HEMOGLOBIN 26.9 pg (27.0-33.0); MEAN CORPUSCULAR HGB CONC 32.7 g/dL (32.0-36.0); MEAN CORPUSCULAR VOLUME 82.1 fL (79-99); MONOCYTES % (AUTO) 6.5 % (3.0-13.0); NEUTROPHILS % (AUTO) 88.1 % (40.0-77.0); NUCLEATED RED BLOOD CELLS 0.1 % (0.0-0.19); PLATELET COUNT (AUTO) 170 K/uL (130-400); RED BLOOD CELL COUNT(AUTO) 3.19 MIL/uL (4.00-5.50); RED CELL DISTRIBUTION WIDTH 18.4 % (11.0-15.5); WHITE BLOOD COUNT (AUTO) 16.6 K/uL (4.8-10.8)
[2018-07-29 04:48] LABS: MAGNESIUM 2.2 mg/dL (1.80-2.40); POTASSIUM 3.8 mmol/L (3.5-5.1)
[2018-07-29] MEDS: METRONIDAZOLE 500 MG TABLET NG SCH ×3 (05:39→22:39)
[2018-07-29] MEDS: INSULIN HUMULIN R 100 UNIT/ML 3ML SQ SCH ×4 (05:54→17:57)
[2018-07-29] MEDS: IPRATROPIUM 0.5 MG/2.5 ML INH IH SCH ×4 (06:24→23:34)
[2018-07-29] MEDS ORDERED: TRAZODONE HCL 100 MG TABLET PO PRN (08:30)
[2018-07-29] MEDS: FAMOTIDINE 20MG TAB 20 MG TAB NG SCH (09:00)
[2018-07-29] MEDS: LACTOBACILLUS RHAMNOSUS GG 1 EACH CAP.SPRINK PO SCH ×3 (09:00→21:00)
[2018-07-29] MEDS: THIAMINE HCL 100 MG TABLET NG SCH (09:00)
[2018-07-29] MEDS: POTASSIUM CHLORIDE 10% ELIXIR 20 MEQ/15 ML UDCUP PO SCH ×2 (09:01→20:46)
[2018-07-29] MEDS: ENOXAPARIN SODIUM 30 MG/0.3 ML SQ SCH (09:02)
[2018-07-29] MEDS: ZINC OXIDE OINT 56.7 GM TP SCH ×4 (09:03→20:48)
[2018-07-29] MEDS: NYSTATIN 15 GM POWDER TP SCH ×2 (09:05→20:45)
[2018-07-29] MEDS: LABETALOL 20 MG/4 ML DISP.SYRIN IV PRN ×2 (10:13→14:43)
[2018-07-29] MEDS ORDERED: DILTIAZEM HCL 5 MG/ML 10 ML VIAL IV SCH (10:30)
[2018-07-29] MEDS ORDERED: DILTIAZEM HCL 5 MG/ML 5 ML VIAL IVP SCH (10:38)
[2018-07-29] MEDS: DILTIAZEM 125MG+100 ML NS 125 ML IV PRN ×2 (10:54→19:06)
--- NOTE | 2018-07-29 11:01 | NUR ---
HOLD DYSPHAGIA EVAL. PATIENT IS A 72 YEAR OLD FEMALE REFERRED FOR A BEDSIDE SWALLOW EVALUATION S/P EXTUBATION ON 07/28/2018. PATIENT EXTUBATED X10 DAYS FROM 07/18/2018 TO 07/28/2018. PATIENT WAS SEEN AT BEDSIDE WITH HOB ELEVATED TO AN APPROXIMATE 70 DEGREES. PATIENT WITH N-G TUBE AND O2 NASAL CANNULA IN PLACE. PATIENT'S SPOUSE AT BEDSIDE. PATIENT ABLE TO FOLLOW COMMANDS AND COMPLETE ORAL PERIPHERAL EXAMINATION. PATIENT APHONIC. LARYNGEAL ELEVATION DECREASED WITH DELAYED PHARYNGEAL RESPONSE TIME. ELECTRIC STOVE INSTALLER EDUCATED PATIENT AND SPOUSE ON RECOMMENDATIONS TO HOLD BEDSIDE SWALLOW EVALUATION SECONDARY TO EXTUBATION COMPLETED LESS THAN 24 HOURS PRIOR TO ATTEMPTED EVAL. PATIENT AND SPOUSE AGREED WITH ELECTRIC STOVE INSTALLER RECOMMENDATIONS. PLAN AND CARE COORDINATED WITH NURSECHAYO. Addendum: 07/29/[address]ARGARITA RUTHERFORD Amended: Links added.
[2018-07-29] MEDS: SODIUM CHLORIDE 0.9% 1000ML 1,000 ML IV SCH (12:27)
[2018-07-29] MEDS: DRONEDARONE HYDROCHLORIDE 400 MG TABLET PO SCH (20:46)
[2018-07-30] VITALS (28 sets, daily range): BP systolic 107–138; BP diastolic 60–89
[2018-07-30] MEDS: INSULIN HUMULIN R 100 UNIT/ML 3ML SQ SCH ×4 (01:02→18:45)
[2018-07-30] MEDS: SODIUM CHLORIDE 0.9% 1000ML 1,000 ML IV SCH ×2 (01:05→17:01)
[2018-07-30] MEDS: DILTIAZEM 125MG+100 ML NS 125 ML IV PRN ×3 (01:06→20:16)
[2018-07-30] MEDS: HALOPERIDOL LACTATE 5 MG/ML VIAL IM PRN (01:23)
[2018-07-30 03:48] LABS: BASOPHILS % (AUTO) 0.3 % (0.0-5.0); EOSINOPHILS % (AUTO) 0.3 % (0.0-8.0); HEMATOCRIT 25.9 % (36-48); LYMPHOCYTES % (AUTO) 5.9 % (21.0-51.0); MEAN CORPUSCULAR HEMOGLOBIN 25.9 pg (27.0-33.0); MEAN CORPUSCULAR HGB CONC 31.3 g/dL (32.0-36.0); MEAN CORPUSCULAR VOLUME 82.8 fL (79-99); MONOCYTES % (AUTO) 7.8 % (3.0-13.0); NEUTROPHILS % (AUTO) 85.7 % (40.0-77.0); NUCLEATED RED BLOOD CELLS 0.1 % (0.0-0.19); PLATELET COUNT (AUTO) 189 K/uL (130-400); RED BLOOD CELL COUNT(AUTO) 3.13 MIL/uL (4.00-5.50); RED CELL DISTRIBUTION WIDTH 19.4 % (11.0-15.5); WHITE BLOOD COUNT (AUTO) 13.4 K/uL (4.8-10.8)
[2018-07-30 03:54] LABS: CREATININE 1.6 mg/dL (0.5-1.5); MAGNESIUM 1.7 mg/dL (1.80-2.40); POTASSIUM 3.5 mmol/L (3.5-5.1)
[2018-07-30] MEDS: METRONIDAZOLE 500 MG TABLET NG SCH ×3 (05:49→21:34)
[2018-07-30] MEDS: IPRATROPIUM 0.5 MG/2.5 ML INH IH SCH ×4 (06:56→23:31)
--- NOTE | 2018-07-30 07:53 | NUR ---
PATIENT UPDATE STARTED SLEEPING ONLY AROUND 0400 DESPITE THE TRAZODONE GIVEN AT HS. RESTLESS AT TIMES, KICKING OFF HER WAFFLE BOOTS, PULLED OUT HER NGT WELL THE NASAL CANNULA, O2 SAT DOWN TO 89% AT ROOM AIR. REINFORCED SAFETY INSTRUCTIONS, PT MORE CONFUSED AT THIS TIME. HALDOL 2 MG GIVEN IM, MITTENS APPLIED TO BOTH HANDS THEN INSERTED ANOTHER SALEM SUMP TUBE TO THE RT NARE, SECURED WELL, TUBE FEEDING RESUMED. HEAD OF THE BED KEPT ELEVATED AT 45 DEGREES, REPOSITIONED Q 2 HRS, HAD 3 LOOSE BOWEL MOVEMENTS OVERNIGHT, FULL BEDBATH GIVEN , TOLERATED WELL. CONTINUES ON THE CARDIZEM DRIP AT 15 MG PER HOUR. NORMOTENSIVE, STILL RUNNING AFIB WITH RVR UP TO 120'S AT TIMES BUT NON SUSTAINED. DAUGHTER AT THE BEDSIDE, CONCERNS ADDRESSED. TOLERATING THE TUBE FEEDING WELL, NO NAUSEA AND VOMITING, JUST THE INT EPISODES OF LOOSE STOOLS IN BETWEEN.
[2018-07-30] MEDS: THIAMINE HCL 100 MG TABLET NG SCH (09:20)
[2018-07-30] MEDS: FAMOTIDINE 20MG TAB 20 MG TAB NG SCH (09:20)
[2018-07-30] MEDS: LACTOBACILLUS RHAMNOSUS GG 1 EACH CAP.SPRINK PO SCH ×3 (09:20→20:49)
[2018-07-30] MEDS: POTASSIUM CHLORIDE 10% ELIXIR 20 MEQ/15 ML UDCUP PO SCH ×2 (09:21→20:49)
[2018-07-30] MEDS: ENOXAPARIN SODIUM 30 MG/0.3 ML SQ SCH (09:21)
[2018-07-30] MEDS: ZINC OXIDE OINT 56.7 GM TP SCH ×4 (09:21→20:50)
[2018-07-30] MEDS: NYSTATIN 15 GM POWDER TP SCH ×2 (09:22→20:50)
--- NOTE | 2018-07-30 11:33 | NUR ---
RD Follow up note Pt remains with tube feedings. Pending Swallow studies as per RN. RD to continue to monitor. Pt LBM 07/30/18, noted diarrhea. Pt monitored labs: Na 148, Cl 113, BUN 42, Cr 1.6, GFR 34, Glu 178, Ca 8.1, Mg 1.70. Pt to remain with current tube feeding as per RN. No additional nutrition concerns at this time. Please notify RD as additional nutrition concerns arise. Thank you. Addendum: 07/30/18 at [address] Amended: Links added.
[2018-07-30] MEDS: DILTIAZEM HCL 60 MG TABLET NG SCH ×3 (12:11→23:27)
[2018-07-30] MEDS: DRONEDARONE HYDROCHLORIDE 400 MG TABLET PO SCH (20:49)
[2018-07-30] MEDS: MAGNESIUM 2GM PREMIX 50ML 50 ML IV PRN (20:52)
[2018-07-31] VITALS (22 sets, daily range): BP systolic 116–164; BP diastolic 69–102
[2018-07-31] MEDS: INSULIN HUMULIN R 100 UNIT/ML 3ML SQ SCH ×5 (00:21→21:00)
[2018-07-31] MEDS: DILTIAZEM HCL 60 MG TABLET NG SCH ×3 (05:22→17:33)
[2018-07-31] MEDS: METRONIDAZOLE 500 MG TABLET NG SCH (05:30)
[2018-07-31] MEDS ORDERED: PHARMACY COMMUNICATION MISC SCH (05:45)
[2018-07-31] MEDS: IPRATROPIUM 0.5 MG/2.5 ML INH IH SCH ×4 (06:32→23:56)
[2018-07-31] MEDS: SODIUM CHLORIDE 0.9% 1000ML 1,000 ML IV SCH ×2 (07:22→22:11)
[2018-07-31] MEDS: DILTIAZEM 125MG+100 ML NS 125 ML IV PRN (07:34)
--- NOTE | 2018-07-31 07:34 | NUR ---
UNABLE TO SCAN CARDIZEM DRIP BAG, PRECEPTOR CHARLES HERNANDEZ MADE AWARE, NEW BAG STARTED AT THIS TIME, PER ORDER, AFIB 120
[2018-07-31] MEDS: POTASSIUM CHLORIDE 10% ELIXIR 20 MEQ/15 ML UDCUP PO SCH ×2 (09:24→21:37)
[2018-07-31] MEDS: FAMOTIDINE 20MG TAB 20 MG TAB NG SCH (09:24)
[2018-07-31] MEDS: LACTOBACILLUS RHAMNOSUS GG 1 EACH CAP.SPRINK PO SCH ×3 (09:24→21:39)
[2018-07-31] MEDS: THIAMINE HCL 100 MG TABLET NG SCH (09:24)
[2018-07-31] MEDS: ENOXAPARIN SODIUM 30 MG/0.3 ML SQ SCH (09:25)
[2018-07-31] MEDS: ZINC OXIDE OINT 56.7 GM TP SCH ×4 (09:25→21:42)
[2018-07-31] MEDS: NYSTATIN 15 GM POWDER TP SCH ×2 (09:26→21:41)
--- NOTE | 2018-07-31 11:40 | NUR ---
DYSPHAGIA EVAL COMPLETED. +S/S OF ASPIRATION WITH THIN LIQUIDS VIA STRAW. RECOMMEND MECH SOFT/GROUND, NECTAR-THICK LIQUIDS; PILLS CRUSHED WITH APPLESAUCE. PATIENT INFORMATION: PATIENT IS A 72 YEAR OLD FEMALE REFERRED FOR A BEDSIDE SWALLOW EVALUATION S/P EXTUBATION ON 07/28/2018. PATIENT EXTUBATED X10 DAYS FROM 07/18/2018 TO 07/28/2018. PATIENT WAS SEEN AT BEDSIDE WITH PRESENT. PATIENT WITH N-G TUBE AND O2 NASAL CANNULA IN PLACE. PATIENT ABLE TO FOLLOW COMMANDS AND COMPLETE ORAL PERIPHERAL EXAMINATION. PATIENT WITH DECREASED VOCAL INTENSITY AND HOARSE VOCAL QUALITY. Pt CURRENTLY ADMITTED SECONDARY TO [facility]. Pt S/P CARDIAC ARREST X10 MINUTES THIS ADMISSION RESULTING IN INTUBATION ON 07/18/2018. Pt WITH PAST MEDICAL HISTORY SIGNIFICANT FOR ACUTE HYPOXEMIC RESPIRATORY FAILURE INTUBATED IN 07/18/2018, ACUTE ON CHRONIC DIASTOLIC CHF, EJECTION FRACTION 50%, MULTIFACTORIAL ACUTE ENCEPHALOPATHY, CAD S/P CABG, ATRIAL FIBRILLATION WITH RAPID VENTRICULAR RESPONSE, RENAL INSUFFICIENCY, ELECTROCUTE IMBALANCE, GASTRIC BYPASS 7 YEARS AGO. EVALUATION: Pt PRESENTS WITH MODERATE OROPHARYNGEAL DYSPHAGIA CAUSED BY DECREASED ACTIVITY TOLERANCE, DECREASED ORAL MOTOR WEAKNESS AND DECREASED ROM, DECREASED TONGUE BASE RETRACTION, DECREASED LARYNGEAL ELEVATION/EXCURSION AND DELAYED PHARYNGEAL RESPONSE TIME, EVIDENCED BY ANTERIOR SPILLAGE, INCREASED MASTICATION TIME WITH OBVIOUS PHYSICAL EXCURSION (INCREASED RESPIRATORY EFFORT), RESULTING IN +S/S OF ASPIRATION OF COUGH RESPONSE WITH THIN LIQUIDS VIA STRAW. RECOMMENDATIONS: 1. MECHANICAL SOFT/GROUND, NECTAR-THICK LIQUIDS; PILLS CRUSHED WITH APPLESAUCE. 2. COMPENSATORY STRATEGIES: *SEATED AT 90 *NO STRAW *SMALL BITES AND SIPS 3. DYSPHAGIA THERAPY 3-5X WEEK TO INCREASE ORAL MOTOR STRENGTH AND PHARYNGEAL SWALLOW: LTG#1: Pt WILL TOLERATE LEAST RESTRICTIVE DIET TO MEET NUTRITION/HYDRATION WITH NO S/S OF ASPIRATION. LTG#2: SKILLED EDUCATION Pt/FAMILY/STAFF STG#1: Pt WILL PARTICIPATE IN LARYNGEAL ELEVATION/EXCURSION EXERCISES WITH 80% ACCURACY. STG#2: Pt WILL PARTICIPATE IN TONGUE BASE RETRACTION EXERCISES WITH 80% ACCURACY. STG#3: Pt WILL PARTICIPATE IN ORAL MOTOR EXERCISES WITH 80% ACCURACY. STG#4: Pt WILL PARTICIPATE IN P.O. OF MECHANICAL SOFT/GROUND, NECTAR-THICK LIQUIDS WITH NO S/S OF ASPIRATION. STG#5: PT WILL TOLERATE PLEASURE FEEDS OF ADVANCED TEXTURES OF MECH SOFT/CHOPP, THIN LIQUIDS WITH NO S/S OF ASPIRATION. STG#6: SKILLED EDUCATION Pt/FAMILY/STAFF. REAL ESTATE ACQUISITION ANALYST EDUCATED Pt AND ON RISKS AND CONSEQUENCES OF ASPIRATION. RESULTS AND RECOMMENDATIONS WERE PROVIDED VERBALLY AND WRITTEN ON Pt'S WHITE BOARD. THEY VERBALIZED UNDERSTANDING AND COMPLIANCE WITH RECOMMENDATIONS. PLEASE NOTE Pt IS AAOX2 AND COOPERATIVE AT THIS TIME. REAL ESTATE ACQUISITION ANALYST REVIEWED RESULTS AND RECOMMENDATIONS WITH NURSE DAVID AND FELICIA. G-CODES SWALLOWING: [id number] Addendum: 07/31/18 at 1205 by BRANDY ARTEAGA, [facility] Amended: Links added.
[2018-07-31] MEDS: FUROSEMIDE 10 MG/ML 2ML VIAL IV SCH ×2 (12:22→21:37)
[2018-07-31] MEDS: METOPROLOL TARTRATE 25 MG TAB PO SCH ×2 (12:22→21:37)
[2018-07-31 12:27] LABS: CREATININE 1.2 mg/dL (0.5-1.5); MAGNESIUM 1.7 mg/dL (1.80-2.40)
[2018-07-31] MEDS: MAGNESIUM 2GM PREMIX 50ML 50 ML IV PRN (13:24)
--- NOTE | 2018-07-31 15:40 | NUR ---
REPORT GIVEN TO RENAE FERRIS RN, TO BE TRANSFERED TO TELE FLOOR. TRANSFERRED TO ROOM 231 VIA BED, PT'S AT BEDSIDE.
--- NOTE | 2018-07-31 16:00 | NUR ---
RECEIVED TRANSFER VIA BED ACCOMPANIED BY SPOUSE. PT. AAOX3. DENIES ANY C/O SOB, DENIES ANY CURRENT PAIN. ORIENTED TO ROOM AND SURROUNDINGS. BED LOW, SIDE RAILS UP X3. ROOM DOOR OPEN, VISIBLE FROM NURSE'S STATION. Addendum: 07/31/18 at 1837 by RENAE FERRIS RN RN DILTIAZEM GTT CONTINUES AT 5MG/HR VIA IV PUMP; NS INFUSING AT 70ML/HR VIA IV PUMP.
[2018-07-31] MEDS: DRONEDARONE HYDROCHLORIDE 400 MG TABLET PO SCH (21:37)
[2018-08-01] VITALS (7 sets, daily range): BP systolic 109–163; BP diastolic 62–99
[2018-08-01] MEDS: DILTIAZEM HCL 60 MG TABLET NG SCH ×4 (00:55→19:32)
[2018-08-01 03:37] LABS: HEMATOCRIT 27.8 % (36-48); MEAN CORPUSCULAR HEMOGLOBIN 25.9 pg (27.0-33.0); MEAN CORPUSCULAR HGB CONC 30.9 g/dL (32.0-36.0); MEAN CORPUSCULAR VOLUME 83.7 fL (79-99); NUCLEATED RED BLOOD CELLS 0.1 % (0.0-0.19); PLATELET COUNT (AUTO) 276 K/uL (130-400); RED BLOOD CELL COUNT(AUTO) 3.32 MIL/uL (4.00-5.50); RED CELL DISTRIBUTION WIDTH 21.9 % (11.0-15.5); WHITE BLOOD COUNT (AUTO) 16.2 K/uL (4.8-10.8)
[2018-08-01 03:50] LABS: CREATININE 1.2 mg/dL (0.5-1.5); POTASSIUM 3.5 mmol/L (3.5-5.1)
[2018-08-01] MEDS: FUROSEMIDE 10 MG/ML 2ML VIAL IV SCH ×3 (04:44→20:19)
[2018-08-01] MEDS: IPRATROPIUM 0.5 MG/2.5 ML INH IH SCH ×4 (05:20→23:30)
[2018-08-01] MEDS: DEXTROSE 50%-WATER 50 ML DISP.SYRIN IV PRN (05:39)
[2018-08-01] MEDS: INSULIN HUMULIN R 100 UNIT/ML 3ML SQ SCH ×4 (05:39→20:21)
--- NOTE | 2018-08-01 07:29 | NUR ---
pT. OFF CARDIZEM DRIP SINCE 0400 AM HR IN THE 80-90S AFIB.PT. MOVED TO ROOM 226 BECAUSE SHE WAS VERY CONFUSED AND TRYING TO PULL OUT RIGHT IJ AND AGUIRRE.
[2018-08-01] MEDS: LACTOBACILLUS RHAMNOSUS GG 1 EACH CAP.SPRINK PO SCH ×3 (08:37→20:20)
[2018-08-01] MEDS: FAMOTIDINE 20MG TAB 20 MG TAB NG SCH (08:37)
[2018-08-01] MEDS: POTASSIUM CHLORIDE 10% ELIXIR 20 MEQ/15 ML UDCUP PO SCH ×2 (08:37→20:20)
[2018-08-01] MEDS: THIAMINE HCL 100 MG TABLET NG SCH (08:37)
[2018-08-01] MEDS: METOPROLOL TARTRATE 25 MG TAB PO SCH ×2 (08:37→20:21)
[2018-08-01] MEDS: ENOXAPARIN SODIUM 30 MG/0.3 ML SQ SCH (08:38)
[2018-08-01] MEDS: POTASSIUM CHLORIDE 20 MEQ/100 ML BAG IV PRN (08:55)
[2018-08-01] MEDS: SODIUM CHLORIDE 0.9% 1000ML 1,000 ML IV SCH (08:55)
[2018-08-01] MEDS: NYSTATIN 15 GM POWDER TP SCH ×2 (12:20→20:39)
[2018-08-01] MEDS: ZINC OXIDE OINT 56.7 GM TP SCH ×4 (12:20→20:39)
--- NOTE | 2018-08-01 14:04 | NUR ---
RD Follow up Note Diet advanced to Soft, Mechanical Ground diet. No report of GI distress. Pt PO intake at 25%; Rec to add Chilled Ensure QD. Pt LBM 08/01/18. Pt monitored labs: Na 150, Cl 115, BUN 27, GFR 47, Glu 121, Ca 7.7, Alb 2.1. Pt with Don Jeronimo DTI, Coccyx ulcer; Rec to add thickened Moustapha dissolved in H2O BID for wound healing support. Rec to also add Vitamin C and Zinc for wound healing support. RD to continue to monitor. Please notify RD as nutritional concerns arise. Thank you. Addendum: 08/01/18 at [address] Amended: Links added.
--- NOTE | 2018-08-01 16:23 | NUR ---
DC PLAN VISITED WITH PATIENT AND SPOUSE. PIERCE SIGNED FOR [facility]. INFO SENT. SPOKE TO MD REGARDING DC DATE. SAID GIVE ONE MORE DAY SEE HOW PATIENT DOES. Addendum: 08/01/18 at 1625 by PAULINA HANSON RN CM Amended: Links added.
--- NOTE | 2018-08-01 20:00 | NUR ---
Pt. instructed about bladder training,lang catheter clamped at this time.Instructed to inform NOD if able to feel the urge to void.However pt is confused and non reliable.Will clamped lang at this time and will check in 3 -4 hrs if able to feel.
[2018-08-01] MEDS: DRONEDARONE HYDROCHLORIDE 400 MG TABLET PO SCH (20:20)
[2018-08-01] MEDS: APIXABAN 2.5 MG TABLET PO SCH (20:33)
[2018-08-01] MEDS ORDERED: INSULIN GLARGINE 100 UNITS/ML 10 ML VIAL SQ SCH (21:00)
--- NOTE | 2018-08-02 | NUR ---
Pt unable to feel the urge to void ,she just stare and smiles when asked.Lang unclamped at this time and will clamped back again in 30 minutes.Yellow urine draining well when lang was released.
[2018-08-02] MEDS: DILTIAZEM HCL 60 MG TABLET NG SCH ×3 (03:34→12:50)
[2018-08-02 03:35] VITALS: BP 147/98
[2018-08-02] MEDS: FUROSEMIDE 10 MG/ML 2ML VIAL IV SCH ×2 (03:36→12:50)
[2018-08-02 04:02] LABS: HEMATOCRIT 29.1 % (36-48); MEAN CORPUSCULAR HGB CONC 32.1 g/dL (32.0-36.0); MEAN CORPUSCULAR VOLUME 84.3 fL (79-99); NUCLEATED RED BLOOD CELLS 0.2 % (0.0-0.19); PLATELET COUNT (AUTO) 371 K/uL (130-400); RED BLOOD CELL COUNT(AUTO) 3.45 MIL/uL (4.00-5.50); RED CELL DISTRIBUTION WIDTH 22.1 % (11.0-15.5); WHITE BLOOD COUNT (AUTO) 14.3 K/uL (4.8-10.8)
[2018-08-02 04:12] LABS: B-TYPE NATRIURETIC PEPTIDE > 5000 pg/mL (0-100)
[2018-08-02 04:17] LABS: CREATININE 1.4 mg/dL (0.5-1.5); MAGNESIUM 1.8 mg/dL (1.80-2.40); PHOSPHORUS 2.7 mg/dL (2.5-4.9); POTASSIUM 3.6 mmol/L (3.5-5.1)
[2018-08-02] MEDS: DEXTROSE 50%-WATER 50 ML DISP.SYRIN IV PRN (05:18)
--- NOTE | 2018-08-02 05:30 | NUR ---
Pt. asked if able to feel the urged to void and she nodded yes .Lang catheter released and pt given instruction prior to lang removal.Ballon deflated and removed.Lang catheter tip intact.Pt. tolerated procedure well.
[2018-08-02] MEDS: INSULIN HUMULIN R 100 UNIT/ML 3ML SQ SCH ×3 (05:53→16:30)
[2018-08-02] MEDS: IPRATROPIUM 0.5 MG/2.5 ML INH IH SCH ×2 (07:08→11:46)
[2018-08-02 07:44] VITALS: BP 128/88
--- NOTE | 2018-08-02 08:00 | NUR ---
ASSESSMENT PT IS RESTING IN BED. BREATHING PATTERN IS EVEN AND UNLABORED, PATIENT SPEAKS CONFUSED PHRASES. ASSISTED WITH BREAKFAST, HOB UP AT 40 DEGREES, NO CHOKING NO GAGGING NOTED. MEDS CRUSHED IN APPLESAUCE. BILATERAL MITTENS IN PLACE, SIDE RAILS UP X4 DOOR AJAR BLINDS OPEN ADEQUATE LIGHTING IN ROOM.
[2018-08-02] MEDS: FAMOTIDINE 20MG TAB 20 MG TAB NG SCH (08:23)
[2018-08-02] MEDS: THIAMINE HCL 100 MG TABLET NG SCH (08:23)
[2018-08-02] MEDS: LACTOBACILLUS RHAMNOSUS GG 1 EACH CAP.SPRINK PO SCH ×2 (08:23→14:41)
[2018-08-02] MEDS: APIXABAN 2.5 MG TABLET PO SCH (08:23)
[2018-08-02] MEDS: POTASSIUM CHLORIDE 10% ELIXIR 20 MEQ/15 ML UDCUP PO SCH (08:24)
[2018-08-02] MEDS: ZINC OXIDE OINT 56.7 GM TP SCH ×2 (08:24→12:51)
[2018-08-02] MEDS: NYSTATIN 15 GM POWDER TP SCH (08:24)
[2018-08-02] MEDS ORDERED: METOPROLOL TARTRATE 50 MG TAB PO SCH (09:00)
--- NOTE | 2018-08-02 09:30 | NUR ---
MITTENS REMOVED FAMILY IS AT BEDSIDE
[2018-08-02 11:53] VITALS: BP 146/78
--- NOTE | 2018-08-02 12:22 | NUR ---
SWALLOW TREATMENT COMPLETED. S: Pt SEEN IN BED SEATED AT 90 DEGREES WITH AT BEDSIDE. Pt COOPERATIVE DURING THE SESSION. O: Pt CURRENTLY TARGETING SWALLOWING GOALS. RESULTS ARE FOLLOWS: STG#1: Pt WILL PARTICIPATE IN LARYNGEAL ELEVATION/EXCURSION EXERCISES WITH 80% ACCURACY: 40% WITH MAX CUES STG#2: Pt WILL PARTICIPATE IN TONGUE BASE RETRACTION EXERCISES WITH 80% ACCURACY:40% MOD CUES STG#3: Pt WILL PARTICIPATE IN ORAL MOTOR EXERCISES WITH 80% ACCURACY: 70% WITH MOD CUES STG#4: Pt WILL PARTICIPATE IN P.O. OF MECHANICAL SOFT/GROUND, NECTAR-THICK LIQUIDS WITH NO S/S OF ASPIRATION: 5 TRIALS WITH NO S/S OF ASPIRATION. PT TOLERATING CURRENT DIET. STG#5: PT WILL TOLERATE PLEASURE FEEDS OF ADVANCED TEXTURES OF MECH SOFT/CHOPP, THIN LIQUIDS WITH NO S/S OF ASPIRATION: 5 TRIALS OF THIN LIQUIDS PROVIDED AFTER ORAL CARE WAS PROVIDED BY [facility]. Pt WITH MILDLY DELAYED PHARYNGEAL RESPONSE DELAY PRESENT DURING MANUAL PALPATION. A: Pt WITH IMPROVED PHONATION AND BREATH SUPPORT DURING CUEING. Pt TOLERATING THERAPY WELL AT THIS TIME. Pt IS MORE INTELLIGIBLE AND IS ABLE TO SAFELY PARTICIPATE IN P.O. P: RECOMMEND CONTINUED SKILLED SPEECH THERAPY 3-5XWK TOLERATED BY Pt. [facility] COORDINATED CARE WITH NURSE FARMER. VERBALIZED AGREEMENT WITH PLAN OF CARE. Addendum: 08/02/18 at [address] Amended: Links added.
--- NOTE | 2018-08-02 12:30 | NUR ---
LUNCH NURSE AID ASSISTING WITH LUNCH, HOB UP AT 40 DEGREES.
--- NOTE | 2018-08-02 15:06 | NUR ---
RD Update Notification received for Pro-Bandar maln concern. Patient tolerating and drinking Ensure nutrition supplement. RD to continue to monitor at this time.
[2018-08-02 15:31] VITALS: BP 137/90
--- NOTE | 2018-08-02 16:54 | NUR ---
REPORT GIVEN TO SYLVESTER AT [facility]. AWAITING EMS OPERATION MANAGER
--- NOTE | 2018-08-02 18:45 | NUR ---
DISCHARGE TO [facility] VIA EMS STRETCHER, DC PACKETS GIVEN TO EMS STAFF
--- NOTE | 2018-08-03 08:49 | NUR ---
DC PLAN PATIENT ACCEPTED TO [facility]. CALVIN DONE AND SENT. PATIENT WILL GO VIA AMBULANCE. BED BOUND AT THIS TIME WORKING WITH PT ON . Addendum: 08/03/18 at 0854 by PAULINA HANSON RN CM Amended: Links added.
[2018-08-03] MEDS ORDERED: FUROSEMIDE 40 MG TABLET PO SCH (09:00)
== END 2018-08-02 18:42 | DRG 870 ==
LOC: EDH 02:25 → EDHIP 04:10 → OBSVTOIN 04:10 → 3BH 15:38 → 2BH 22:07 → 2AH 07-31 15:40 → 2DH 07-31 21:00
PROVIDERS: ADMIT Internal Medicine; ATTEND Internal Medicine
PROC: 5A12012 Performance of Cardiac Output, Single, Manual (ICD-10-PCS; 2018-07-18)
PROC: 5A1955Z Respiratory Ventilation, Greater than 96 Consecutive Hours (ICD-10-PCS; principal; 2018-07-19)
PROC: 0BH17EZ Insertion of Endotracheal Airway into Trachea, Via Natural or Artificial Opening (ICD-10-PCS; 2018-07-19)
PROC: 05HM33Z Insertion of Infusion Device into Right Internal Jugular Vein, Percutaneous Approach (ICD-10-PCS; 2018-07-21)
PROC: B543ZZA Ultrasonography of Right Jugular Veins, Guidance (ICD-10-PCS; 2018-07-21)
DX: A41.9 Sepsis, unspecified organism (principal); J96.01 Acute respiratory failure with hypoxia; K72.00 Acute and subacute hepatic failure without coma; I46.9 Cardiac arrest, cause unspecified; J18.9 Pneumonia, unspecified organism; J96.02 Acute respiratory failure with hypercapnia; G93.41 Metabolic encephalopathy; I50.33 Acute on chronic diastolic (congestive) heart failure; R65.21 Severe sepsis with septic shock; N17.9 Acute kidney failure, unspecified; D68.69 Other thrombophilia; J44.0 Chronic obstructive pulmonary disease with (acute) lower respiratory infection; E44.0 Moderate protein-calorie malnutrition; E87.0 Hyperosmolality and hypernatremia; F13.20 Sedative, hypnotic or anxiolytic dependence, uncomplicated; G62.81 Critical illness polyneuropathy; I13.0 Hypertensive heart and chronic kidney disease with heart failure and stage 1 through stage 4 chronic kidney disease, or unspecified chronic kidney disease; J98.11 Atelectasis; K22.10 Ulcer of esophagus without bleeding; L12.9 Pemphigoid, unspecified; K21.9 Gastro-esophageal reflux disease without esophagitis; Z79.01 Long term (current) use of anticoagulants; N18.2 Chronic kidney disease, stage 2 (mild); S01.81XA Laceration without foreign body of other part of head, initial encounter; I48.0 Paroxysmal atrial fibrillation; I48.2 Chronic atrial fibrillation; B95.2 Enterococcus as the cause of diseases classified elsewhere; D64.9 Anemia, unspecified; E03.9 Hypothyroidism, unspecified; E11.22 Type 2 diabetes mellitus with diabetic chronic kidney disease; E11.42 Type 2 diabetes mellitus with diabetic polyneuropathy; E11.649 Type 2 diabetes mellitus with hypoglycemia without coma; E78.2 Mixed hyperlipidemia; E83.42 Hypomagnesemia; E86.0 Dehydration; E87.6 Hypokalemia; F32.5 Major depressive disorder, single episode, in full remission; F41.1 Generalized anxiety disorder; F51.04 Psychophysiologic insomnia; G25.81 Restless legs syndrome; I08.1 Rheumatic disorders of both mitral and tricuspid valves; I25.10 Atherosclerotic heart disease of native coronary artery without angina pectoris; I25.5 Ischemic cardiomyopathy; I70.0 Atherosclerosis of aorta; K76.0 Fatty (change of) liver, not elsewhere classified; M19.90 Unspecified osteoarthritis, unspecified site; M85.80 Other specified disorders of bone density and structure, unspecified site; R13.12 Dysphagia, oropharyngeal phase; Z16.21 Resistance to vancomycin; Z96.651 Presence of right artificial knee joint; F03.90 Unspecified dementia, unspecified severity, without behavioral disturbance, psychotic disturbance, mood disturbance, and anxiety; W18.30XA Fall on same level, unspecified, initial encounter; Z82.3 Family history of stroke; Z82.49 Family history of ischemic heart disease and other diseases of the circulatory system; Z83.3 Family history of diabetes mellitus; Z87.891 Personal history of nicotine dependence; Z95.1 Presence of aortocoronary bypass graft; Z98.42 Cataract extraction status, left eye; Z98.84 Bariatric surgery status; Z68.23 Body mass index [BMI] 23.0-23.9, adult; Z88.2 Allergy status to sulfonamides; Z88.8 Allergy status to other drugs, medicaments and biological substances; Y93.89 Activity, other specified; Y99.8 Other external cause status; Y92.009 Unspecified place in unspecified non-institutional (private) residence as the place of occurrence of the external cause
CPT/HCPCS: 31500; 36415; 36556; 36600; 70450; 71045; 71250; 72125; 73562; 76770; 80048; 80053; 80076; 80305; 81001; 82140; 82435; 82550; 82803; 82947; 82948; 83605; 83735; 83874; 83880; 84100; 84132; 84295; 84300; 84443; 84484; 84550; 85018; 85025; 85027; 85610; 85730; 87040; 87046; 87077; 87186; 87324; 92526; 92610; 92950; 93005; 93306; 94002; 94003; 94640; 94664; A4330; C1751; G0378; G0480; J0171; J0330; J0360; J0461; J0696; J1100; J1265; J1630; J1650; J1815; J1940; J1956; J2060; J2250; J2405; J2543; J2704; J3411; J3475; J3480; J3490; J7030; J7040; J7042; J7070